=== PATIENT | female | born 1980 | race African-American/Black ===

== ENCOUNTER 2024-08-25 09:13 | Emergency (ER) | payer OTHER, SELFPAY ==
--- NOTE | ~2024-08-25 | XR_ITS ---
EXAMINATION: XR chest 2V DATE: 08/25/2024 09:36 INDICATION: Chest pain. TECHNIQUE: Frontal and lateral views of the chest were obtained. COMPARISON: None. FINDINGS: There is no pneumonia, pleural effusion, or pneumothorax. The heart size is normal. IMPRESSION: 1. No acute cardiopulmonary disease. Reviewed, dictated and finalized at location L.
[2024-08-25 09:12] VITALS: O2SAT 100
--- NOTE | 2024-08-25 09:13 | ECG_ITS ---
Test Date: 2024-08-25 09:46:08 Measurements Intervals [place] Rate: 93 P: 50 NE: 139 QRS: 5 QRSD: 86 T: 23 QT: 333 QTc: 416 Interpretive Statements SINUS RHYTHM LOW QRS VOLTAGE IN PRECORDIAL LEADS Electronically Signed On 08-26-2024 11:37:36 CDT by Prasanth Vernon D.O
--- NOTE | 2024-08-25 09:18 | ED.ASTHMA ---
HPI - Asthma General Chief Complaint: Asthma Stated Complaint: asthma Time Seen by Provider: 08/25/24 09:13 Source: patient Mode of arrival: EMS Limitations: no limitations History of Present Illness HPI Narrative: This is a 44-year-old female that presents to the emergency department for shortness of breath. Ongoing since yesterday. Reports history of asthma. She has been using her nebulizer treatments with little relief. Denies fever, cough. Related Data Allergies Allergy/AdvReac Type Severity Reaction Status Date / Time No Known Allergies Allergy Verified 08/25/24 09:20 Review of Systems Review of Systems: CONSTITUTIONAL: Denies fever, CARDIOVASCULAR: Reports chest tightness RESPIRATORY: Reports dyspnea. All systems reviewed & are unremarkable except as noted in HPI and below PMFSH Past Medical History Medical History (Updated 08/25/24 @ 11:43 by Fallon Humphrey PA-C) History of asthma Social History Social History (Updated 08/25/24 @ 11:42 by Fallon Humphrey PA-C) Substance use: never Exam Narrative: GENERAL: Well-appearing, well-nourished, and in no acute distress. HEAD: Normocephalic, atraumatic. EYES: EOMI. ENT: Nares clear, no rhinorrhea or epistaxis. Mucous membranes moist. Oropharynx without tonsillar hypertrophy exudate or other lesions. NECK: Supple. No adenopathy or masses. CHEST: No respiratory distress. Lung sounds diminished with diffuse expiratory wheezing. No rales or rhonchi HEART: Regular rate and rhythm. No murmur heard. Normal peripheral pulses. EXTREMITIES: Normal range of motion. No edema. SKIN: Warm, dry, no rash. NEURO: No focal deficits. Alert and oriented x3. PSYCH: Normal mood and affect Course Course Emergency Course: Patient was updated on her workup and recommendation for admission for further evaluation/management. She does not wish to stay in the hospital at this time. She does report feeling much better. She will follow-up with her PCP Vital Signs Vital signs: Vital Signs Pulse Oximetry 100 08/25/24 09:12 Oxygen Delivery Room Air 08/25/24 09:12 Temperature 97.8 F 08/25/24 11:41 Pulse Rate 113 H 08/25/24 11:41 Respiratory Rate 20 08/25/24 11:41 Blood Pressure 143/94 H 08/25/24 11:41 Pulse Oximetry 100 08/25/24 11:41 Oxygen Delivery Room Air 08/25/24 09:12 MDM - Asthma MDM Narrative Medical decision making narrative: Patient presents to the emergency department for asthma exacerbation. Patient's lung sounds diminished with diffuse wheezing upon arrival. Given nebulizer treatment, magnesium, Solu-Medrol. Cbc without leukocytosis. Metabolic panel without concerning findings. Influenza, RSV and COVID screens are negative. EKG without acute ST changes, baseline troponin is negative. Chest x-ray without acute cardiopulmonary abnormality. Patient was updated on her workup and recommendation for admission for further evaluation/management due to the severity of her symptoms upon arrival. She does not wish to stay in the hospital at this time. She does report feeling much better. She will follow-up with her PCP. She was instructed to return at any time for further management Differential Diagnosis Differential diagnosis: Likely Acute exacerbation, Acute asthmatic bronchitis, Pneumonia and other (COVID, influenza, RSV) Lab Data Attestation: I reviewed the patient's lab results. 08/25/24 09:27 08/25/24 09:27 Labs: Lab Results 08/25/24 Range/Units 09:27 WBC 7.9 (4.5-10.0) K/mm3 RBC 4.68 (4.2-5.4) M/mm3 Hgb 13.1 (12.0-15.0) g/dL Hct 41.4 (37.0-47.0) % MCV 88.5 (80-100) fl MCH 28.0 (26-34) pg MCHC 31.6 L (32-36) g/dl RDW 13.0 (11.5-14.5) % Plt Count 229 (150-375) k/mm3 MPV 10.7 H (7.4-10.4) fl Immature Gran % (Auto) 0.5 (0-0.5) % Neut % (Auto) 63.9 (45.5-73.1) % Lymph % (Auto) 26.0 (18.3-44.2) % [place] % (Auto) 4.4 (2.6-8.5) % Eos % (Auto) 4.6 H (0-4.4) % Baso % (Auto) 0.6 (0.2-1.2) % Lymph # (Auto) 2.05 (0.9-3.2) K/mm3 [place] # (Auto) 0.4 (0.1-0.6) K/mm3 Eos # (Auto) 0.4 H (0-0.3) K/mm3 Baso # (Auto) 0.1 (0.0-0.1) K/mm3 Abs Immat Gran (auto) 0.04 H (0.00-0.031) K/mm3 Absolute Neuts (auto) 5.0 (1.3-6.7) K/mm3 Absolute Nucleated RBC 0.000 (0.0-0.012) K/mm3 Nucleated RBC % 0.0 (0.0-0.2) % PT 13.1 (11.1-14.7) Seconds INR 0.9 APTT 28.5 (22.3-36.8) Seconds Sodium 134 L (137-145) mmol/L Potassium 4.3 (3.4-5.0) mmol/L Chloride 101 (98-107) mmol/L Carbon Dioxide 22 (22-30) mmol/L Anion Gap 11 (4-12) mmol/L BUN 15 (7-17) mg/dL Creatinine 0.82 (0.7-1.0) mg/dL Estim Creat Clear Calc Not Reportable Estimated GFR > 60 (59 - ) Glucose 88 (65-110) mg/dL Calcium 9.0 (8.4-10.2) mg/dL Total Bilirubin 0.9 (0.2-1.3) mg/dL AST 20 (14-36) U/L ALT 21 (6-35) U/L Alkaline Phosphatase 72 (38-126) U/L Troponin I < 0.012 (0.000-0.034) ng/mL Total Protein 7.0 (6.3-8.2) g/dL Albumin 3.9 (3.5-5.1) g/dL Lipase 97 (23-300) U/L Influenza A (RT-PCR) Negative (Negative) Influenza B (RT-PCR) Negative (Negative) RSV (RT-PCR) Negative (Negative) SARS-CoV-2 RNA (RT-PCR) Negative (Negative) Imaging Data Radiologist's impression: ITS Impressions Chest X-Ray 08/25/24 09:38 IMPRESSION: 1. No acute cardiopulmonary disease. ECG Data EKG #1: ECG completion date: 08/25/24 EKG Interpretation: normal rate, sinus rhythm, no ST changes and normal QT Critical Care Time Critical Care Time Critical Care Time: No Discharge Plan Discharge Clinical Impression: Asthma with acute exacerbation Qualifiers: Asthma severity: unspecified severity Asthma persistence: persistent Qualified Code(s): J45.901 - Unspecified asthma with (acute) exacerbation Patient Disposition: Home, Self-Care Condition: Improved Instructions: Asthma (ED) Additional Instructions: Return to the emergency department for worsening symptoms, or any other concerns Remain well-hydrated, get plenty of rest. Take Tylenol or Motrin [id number]-[id number] for pain as needed. Albuterol nebulizer treatment every 4-6 hours. Continue Prednisone daily. You may start this tomorrow Follow up with your primary care doctor Patient Language: Citizen Of [place] Prescriptions: New prednisone 20 mg tablet 40 mg PO DAILY 4 Days Qty: 8 0RF
[2024-08-25] MEDS: ALBUTEROL SULFATE NEB 2.5 MG/3 ML INH 15 MG INHALATION (09:37)
[2024-08-25] MEDS: IPRATROPIUM BR 0.02% INH SOLN 0.5 MG/2.5 ML VIAL 1.5 MG INHALATION (09:37)
[2024-08-25 09:40] VITALS: PULSE 93; RESP 20
[2024-08-25] MEDS: MAGNESIUM SULF 2 GM/WATER 50ML 2 GM/50 ML BAG IVPB (09:40)
[2024-08-25] MEDS: methylPREDNISolone SOD SUCC 125 MG VIAL IV PUSH (09:40)
[2024-08-25 09:41] LABS: Basophils Absolute Auto 0.1 K/mm3 (0.0-0.1); Basophils Percent Auto 0.6 % (0.2-1.2); Eosinophils Absolute Auto 0.4 K/mm3 (0-0.3); Eosinophils Percent Auto 4.6 % (0-4.4); Hematocrit 41.4 % (37.0-47.0); Hemoglobin 13.1 g/dL (12.0-15.0); Immature Granulocyte Absolute 0.04 K/mm3 (0.00-0.031); Immature Granulocyte Percent A 0.5 % (0-0.5); Lymphocytes Absolute Auto 2.05 K/mm3 (0.9-3.2); Mean Corpuscular HGB Conc 31.6 g/dl (32-36); Mean Corpuscular Volume 88.5 fl (80-100); Mean Platelet Volume 10.7 fl (7.4-10.4); Monocytes Absolute Auto 0.4 K/mm3 (0.1-0.6); Monocytes Percent Auto 4.4 % (2.6-8.5); Neutrophils Percent Auto 63.9 % (45.5-73.1); Platelet Count Result 229 k/mm3 (150-375); Red Blood Count 4.68 M/mm3 (4.2-5.4); White Blood Count 7.9 K/mm3 (4.5-10.0)
[2024-08-25 09:55] LABS: INR 0.9; Prothrombin Time 13.1 Seconds (11.1-14.7)
[2024-08-25 09:56] LABS: Partial Thromboplastin Time 28.5 Seconds (22.3-36.8)
[2024-08-25 10:09] LABS: Troponin I < 0.012 ng/mL (0.000-0.034)
[2024-08-25 10:17] LABS: Alanine Aminotransferase 21 U/L (6-35); Albumin Level 3.9 g/dL (3.5-5.1); Alkaline Phosphatase 72 U/L (38-126); Anion Gap 11 mmol/L (4-12); Aspartate Amino Transferase 20 U/L (14-36); Bilirubin,Total 0.9 mg/dL (0.2-1.3); Blood Urea Nitrogen 15 mg/dL (7-17); Carbon Dioxide 22 mmol/L (22-30); Chloride 101 mmol/L (98-107); Estimated Glomerular Filt Rate > 60; Glucose 88 mg/dL (65-110); Lipase 97 U/L (23-300); Potassium 4.3 mmol/L (3.4-5.0); Sodium 134 mmol/L (137-145)
[2024-08-25 10:18] LABS: Influenza A QL RT-PCR Negative (Negative); Influenza B QL RT-PCR Negative (Negative); RSV RNA, RT-PCR Negative (Negative); SARS-CoV-2 RNA PCR Negative (Negative)
--- OUTSIDE RECORDS SUMMARY | 2024-08-25 11:32 | XMS_ITS | Clinical Summary ---
Author Organization [facility] Address [address] [place] [address] Phone Care Team Providers Care Manufacturing Engineering Technician Name Role Phone Unavailable Primary Care Provider Unavailabl e Allergies No known active allergies Medications montelukast (Singulair) 10 mg tablet Take 1 Tablet (10 mg) by mouth daily at bedtime. 30 Tablet 1 3 Active albuterol sulfate HFA 90 mcg/actuation aerosol inhaler Take 4 Puffs by inhalation every 4 hours as needed for Shortness of Breath. 8.5 Gram 3 Active albuterol (PROVENTIL,VENTOL IN) 2.5 mg /3 mL (0.083 %) Solution for Nebulization Take 3 mL (2.5 mg) by inhalation every 6 hours as needed for Shortness of Breath. 90 mL 11 12/19/2023 6:57 PM CDT 4 Active budesonide-formot Amber (Symbicort) 160-4.5 mcg/actuation HFA Aerosol Inhaler Take 2 Puffs by inhalation 2 times daily. 10.2 Gram 11 12/22/2023 4:18 PM CDT 4 Active glyBURIDE (DIABETA) 5 mg tablet TAKE 1 TABLET BY MOUTH TWICE DAILY DIRECTED Active fluticasone propionate (FLONASE) 50 mcg/spray [place], Suspension nasal inhaler SHAKE LIQUID AND USE 1 SPRAY IN EACH NOSTRIL EVERY DAY Active losartan-hydroCHL OROthiazide (HYZAAR) 100-12.5 mg tablet Take 1 Tablet by mouth daily in the morning. 2 Active Active Problems Problem Noted Date Diagnosed Date Moderate persistent asthma with exacerbation Type 2 diabetes mellitus wit h hypoglycemia without coma, without long-term current use of insulin 02/27/2022 Encounters Date Type Department Care Team Description 07/25/2024 External Device Data [facility]CTION Provider, Abstract 07/18/2024 External Device Data [facility] Provider, Abstract 07/06/2024 External Device Data [facility] Provider, Abstract 06/28/2024 External Device Data [facility] Provider, Abstract 06/20/2024 External Device Data [facility] Provider, Abstract 05/30/2024 External Device Data [facility] Provider, Abstract from Last 3 Months Immunizations Immunization Administration Dates Next Due Influenza Seasonal Unspecifi ed Formulation IM 04/13/2023,03/26/2022,03/12/2021 Social History Tobacco Use Types Packs/Day Years Used Date Smoking Tobacco: Never Smokeless Tobacco: Never Tobacco Cessation:Counseling Given: Not Answered Alcohol Use Standard Drinks/Week Comments Not Currently 0 (1 standard drink = 0.6 oz pur e alcohol) Feeling Safe Answer Date Recorded Are you in a relationship wi th someone who hurts you emotionally and/or physically? 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 Gender Identity Not on file Sexual Orientation Not on file Last Filed Vital Signs Vital Sign Reading Time Taken Comments Blood Pressure 132/101 12/19/2023 5:09 PM CDT Pulse 97 12/19/2023 5:32 PM CDT Temperature 36.8 C (98.3 F) 12/19/2023 5:09 PM CDT Respiratory Rate 18 12/19/2023 6:52 PM CDT Oxygen Saturation 93% 12/19/2023 5:32 PM CDT Inhaled Oxygen Concentration - - Weight 152 kg (335 lb) 12/19/2023 5:09 PM CDT Height 168.1 cm (5' 6.2 ) 12/19/2023 5:09 PM CDT Body Mass Index 53.74 12/19/2023 5:09 PM CDT Plan of Treatment Health Maintenance Due Date Last Done Comments PNEUMOCOCCAL VACCINE 0-49 YEARS (1 of 2 - PCV) 1985 DIABETES ANNUAL FOOT EXAM 1997 DIABETES ANNUAL RETINAL EXAM 1997 DIABETES MICROALBUMIN ANNUAL SCREEN 1997 LDL CHOLESTEROL ANNUAL 1997 HEPATITIS B VACCINES (1 of 3 - 19+ 3-dose series) 1998 03/29/2018 CERVICAL CANCER SCREENING 2009 BREAST CANCER SCREENING 2019 INFLUENZA VACCINE (#1) 2024 , 03/26/2022, 03/12/2021, Additional history exists COLORECTAL SCREENING 2024 Colorectal Cancer Screening 2024 FIT-DNA Q 3 years 2024 FIT/FOBT Q 1 year 2024 Flex Sig/CT Colonography Q 5 years 2024 DIABETES HBA1C Q 6 MONTHS 10/09/20242023, 02/26/2022, 12/12/2021, Additional history exists DTAP/TDAP/TD VACCINES (2 - Td or Tdap) 03/29/2028 03/29/2018 HPV VACCINES Aged Out No longer eligi ble based on patient's age to complete this topic Procedures Procedure Name Priority Date/Time Associated Diagnosis Comments HEMOGLOBIN A1C Stat 02/26/2022 8:54 PM CDT from Last 3 Months or Most Recently Relevant to Health Maintenance Results * HEMOGLOBIN A1C (02/26/2022 8:54 PM CDT) HEMOGLOBIN A1C 4.7 <5.7 % 02/26/2022 10:06 PM CDT [facility] [employer] [facility] EST. AVG GLUCOSE, A1C 88 mg/dL 02/26/2022 10:06 PM CDT [facility] [employer] [facility] Blood Venipuncture / Unknown 02/26/2022 8:54 PM CDT 02/26/2022 9:49 PM CDT Narrative [facility] [employer] [facility] - 02/26/2022 10:06 PM CDT HGB A1C INTERPRETATION NORMAL: <5.7% PRE-DIABETES: 5.7 - 6.4% DIABETES: 6.5% OR GREATER us Vladimir Rangel MD CHEMISTRY ORDERABLES Final Re sult [facility]# [id number] [address] [place] [id number] from Last 3 Months or Most Recently Relevant to Health Maintenance Insurance [employer] [place] RX [facility] [employer] Advance Directives For more information, please contact: [phone] * Default Full Code - Needs Discussion (Latest Code Status on File) Date Activated Date Inactivated Comments 02/27/2022 7:40 AM 02/27/2022 9:52 AM
--- OUTSIDE RECORDS SUMMARY | 2024-08-25 11:32 | XMS_ITS | Referral Summary ---
Author Organization [facility] [employer] Address [address] [place] [address] Care Team Providers Care Finance Officer Name Role Phone Josi Patel Dereje THOMPSONN-SENIOR DESIGNER/ART DIRECTOR Primary Care Provi jesus Source Comments [facility] [employer]non-owned Affiliates and Associated Physician Practices is amultiple site organization consisting of ambulatory clinics and hospital sitesin [place], [place], [place] and [place]. This disclosure is being madepursuant to the Care Everywhere program and may not contain all information available regarding this patient. Last updated [employer] Allergies No known active allergies Medications * Be aware that medications may not be up to date on this document. Alwaysverify current medications with the patient. Medication Sig Dispensed Refills Start Date End Date Status ipratropium (ATROVENT) 0.06 % nasal spray Floyd 2 sprays into each nostril 3 times daily 1 bottles 03/26/2019 Active albuterol HFA (ProAir HFA) 108 (90 Base) MCG/ACT inhaler Inhale 2 (two) puffs by mouth every 4 hours as needed 8.5 g 04/04/2023 Active albuterol (Accuneb) 1.25 MG/3ML nebulizer solution Inhale 3 mL by mouth 4 times daily as needed for Shortness of Breath or Wheezing 75 mL 01/03/2024 Active Nirmatrelvir&Riton avir 300/100 20 x 150 MG & 10 x 100MG Oral Tablet Therapy Pack (Paxlovid) Take two 150mg tablets (300mg) of nirmatrelvir and one tablet (100mg) of ritonavir together as a single dose by mouth twice daily for 5 days. Do not crush, chew, or cut in half. 30 tablet 01/03/2024 Active albuterol (Accuneb) 1.25 MG/3ML nebulizer solution Inhale 3 mL by mouth 4 times daily as needed for Shortness of Breath or Wheezing 75 mL 01/03/2024 Active Active Problems No known active problems Social History Tobacco Use Types Packs/Day Years Used Date Smoking Tobacco: Never Assessed Sex and Gender Information Value Date Recorded Sex Assigned at Not on file Gender Identity Not on file Sexual Orientation Not on file Last Filed Vital Signs Vital Sign Reading Time Taken Comments Blood Pressure 162/99 04/10/2024 12:16 PM CDT Pulse 70 04/10/2024 12:16 PM CDT Temperature 36.8 C (98.2 F) 04/10/2024 12:16 PM CDT Respiratory Rate 18 04/10/2024 12:16 PM CDT Oxygen Saturation 95% 04/10/2024 12:16 PM CDT Inhaled Oxygen Concentration - - Weight 167.8 kg (370 lb) 04/10/2024 10:15 AM CDT Height 167.6 cm (5' 6 ) 04/10/2024 10:15 AM CDT Body Mass Index 59.72 04/10/2024 10:15 AM CDT Plan of Treatment Not on file Care Teams Finance Officer Relationship Specialty Start Date End Date Josi Patel, PATIENT PORTAL CONCIERGE-SENIOR DESIGNER/ART DIRECTOR [address] [place] [id number] PCP - General Nurse Practitioner Family 04/10/24
--- OUTSIDE RECORDS SUMMARY | 2024-08-25 11:32 | XMS_ITS | Patient Health Summary ---
Author Organization [facility] Address [address] [place] [address] Care Team Providers Care Human Resources Designate Name Role Phone Josi Patel Dereje THOMPSONN-CONSTRUCTION ANALYST Primary Care Provi jesus Note from [facility],non-owned Affiliates and Associated Physician Practices is amultiple site organization consisting of ambulatory clinics and hospital sitesin [place], [place], [place] and [place]. This disclosure is being madepursuant to the Care Everywhere program and may not contain all information available regarding this patient. Last updated 18.[facility] Allergies No known active allergies Medications * Be aware that medications may not be up to date on this document. Alwaysverify current medications with the patient. * ipratropium (ATROVENT) 0.06 % nasal spray(Started 03/26/2019) [place] 2 sprays into each nostril 3 times daily * albuterol HFA (ProAir HFA) 108 (90 Base) MCG/ACT inhaler(Started 04/04/2023) Inh[place] 2 (two) puffs by mouth every 4 hours as needed * albuterol (Accuneb) 1.25 MG/3ML nebulizer solution(Started 01/03/2024) Inhale 3 mL by mouth 4 times daily as needed for Shortness of Breath or Wheezing * Nirmatrelvir&Ritonavir 300/100 20 x 150 MG & 10 x 100MG Oral Tablet Therapy Pack (Paxlovid)(Started 01/03/2024) Take two 150mg tablets (300mg) of nirmatrelvir and one tablet (100mg) of ritonavir together as a single dose by mouth twice daily for 5 days. Do not crush, chew, or cut in half. * albuterol (Accuneb) 1.25 MG/3ML nebulizer solution(Started 01/03/2024) Inhale 3 mL by mouth 4 times daily as needed for Shortness of Breath or Wheezing Active Problems No known active problems Social [...] Mass Index 59.72 04/10/2024 10:15 AM CDT Procedures * GLUCOSE - POINT OF CARE(Performed 04/10/2024) * LACTIC ACID BLOOD REFLEX TO REPEAT(Performed 04/10/2024) * HEMOGLOBIN A1C(Performed 04/10/2024) * HYDROXYBUTYRATE BETA(Performed 04/10/2024) * HCG BETA BLOOD QUANTITATIVE(Performed 04/10/2024) * URINALYSIS REFLEX MICROSCOPIC REFLEX CULTURE(Performed 04/10/2024) * MAGNESIUM BLOOD(Performed 04/10/2024) * COMPREHENSIVE METABOLIC PANEL(Performed 04/10/2024) * CBC W AUTO DIFFERENTIAL(Performed 04/10/2024) * GLUCOSE - POINT OF CARE(Performed 04/10/2024) * CARDIAC EKG ORDER(Performed 03/07/2024) * TROPONIN-I HIGH SENSITIVE REFLEX 1HOUR(Performed 03/04/2024) * HCG BETA BLOOD QUANTITATIVE(Performed 03/04/2024) * MAGNESIUM BLOOD(Performed 03/04/2024) * TROPONIN-I HIGH SENSITIVE BASELINE + 1HR(Performed 03/04/2024) * COMPREHENSIVE METABOLIC PANEL(Performed 03/04/2024) * CBC W AUTO DIFFERENTIAL(Performed 03/04/2024) * SARS-COV-2 (COVID-19) RAPID(Performed 03/04/2024) * XR CHEST 1VW PORTABLE(Performed 03/04/2024) Performed for SOB (shortness of breath) * EKG 12-LEAD(Performed 03/04/2024) Performed for SOB (shortness of breath) * CARDIAC EKG ORDER(Performed 01/04/2024) * XR CHEST 1VW PORTABLE(Performed 01/03/2024) Performed for Chest pain, unspecified type * B-TYPE NATRIURETIC PEPTIDE(Performed 01/03/2024) * MAGNESIUM BLOOD(Performed 01/03/2024) * TROPONIN-I HIGH SENSITIVE BASELINE + 1HR(Performed 01/03/2024) * COMPREHENSIVE METABOLIC PANEL(Performed 01/03/2024) * CBC W AUTO DIFFERENTIAL(Performed 01/03/2024) * SARS-COV-2 (COVID-19) RAPID(Performed 01/03/2024) * EKG 12-LEAD(Performed 01/03/2024) Performed for Chest pain, unspecified type * CARDIAC EKG ORDER(Performed 04/05/2023) * CBC W AUTO DIFFERENTIAL(Performed 04/04/2023) * XR CHEST 2VW(Performed 04/04/2023) Performed for Shortness of breath * SARS-COV-2 (COVID-19) RAPID(Performed 04/04/2023) * TROPONIN-I HIGH SENSITIVE BASELINE + 1HR(Performed 04/04/2023) * COMPREHENSIVE METABOLIC PANEL(Performed 04/04/2023) * EKG 12-LEAD(Performed 04/04/2023) Performed for Shortness of breath * COMPREHENSIVE METABOLIC PANEL(Performed 12/26/2022) * CBC W AUTO DIFFERENTIAL(Performed 12/26/2022) * XR CHEST 2VW(Performed 12/26/2022) Performed for Shortness of breath * PHOSPHORUS BLOOD(Performed 08/13/2016) * MAGNESIUM BLOOD(Performed 08/13/2016) * BASIC METABOLIC PANEL (CALCIUM TOTAL)(Performed 08/13/2016) * CBC W AUTO DIFFERENTIAL(Performed 08/13/2016) * CBC W AUTO DIFFERENTIAL(Performed 08/13/2016) * BASIC METABOLIC PANEL (CALCIUM TOTAL)(Performed 08/12/2016) * PHOSPHORUS BLOOD(Performed 08/12/2016) * MAGNESIUM BLOOD(Performed 08/12/2016) * CBC W AUTO DIFFERENTIAL(Performed 08/12/2016) * CBC W AUTO DIFFERENTIAL(Performed 08/12/2016) * HCG URINE QUALITATIVE - POCT (IP) [facility](Performed 08/11/2016) * BLOOD GASES ARTERIAL(Performed 08/11/2016) * XR CHEST 1VW PORTABLE(Performed 08/11/2016) * CBC W AUTO DIFFERENTIAL(Performed 08/11/2016) * COMPREHENSIVE METABOLIC PANEL(Performed 08/11/2016) * CBC W AUTO DIFFERENTIAL(Performed 08/11/2016) * XR CHEST 2VW(Performed 08/06/2016) * EKG 12-LEAD(Performed 08/06/2016) * BASIC METABOLIC PANEL (CALCIUM TOTAL)(Performed 04/07/2015) * CBC W AUTO DIFFERENTIAL(Performed 04/07/2015) * CBC W AUTO DIFFERENTIAL(Performed 04/07/2015) * BASIC METABOLIC PANEL (CALCIUM TOTAL)(Performed 04/06/2015) * CBC W AUTO DIFFERENTIAL(Performed 04/06/2015) * CBC W AUTO DIFFERENTIAL(Performed 04/06/2015) * MAGNESIUM BLOOD(Performed 04/05/2015) * BASIC METABOLIC PANEL (CALCIUM TOTAL)(Performed 04/05/2015) * BLOOD GASES ADIS(Performed 04/05/2015) * LACTIC ACID WHOLE BLOOD(Performed 04/05/2015) * CBC W AUTO DIFFERENTIAL(Performed 04/05/2015) * CBC W AUTO DIFFERENTIAL(Performed 04/05/2015) * XR CHEST 1VW PORTABLE(Performed 04/05/2015) * GROSS + MICRO EXAM(Performed 07/19/2000) Results * (ABNORMAL) GLUCOSE - POINT OF CARE (04/10/2024 1:12 PM CDT) Only the most recent of2 resultswithin the time period is included. Glucose WB/POC 278(H) 70 - 99 mg/dL 04/10/2024 1:21 PM CDT [facility] Specimen Type Cap Fingerstick 2023 1:21 PM CDT [facility] Blood BLOOD SPECIMEN / Unknown 04/10/2024 1:12 PM CDT 04/10/2024 1:21 PM CDT Provider Unknown LAB - POINT OF CARE ORDERABLES Performing Organization Address [facility]/ZIP Co de Phone Number [facility] [address] [place] [address] * LACTIC ACID BLOOD REFLEX TO REPEAT (04/10/2024 12:02 PM CDT) Lactic Acid 1.0 <=2.0 mmol/L 04/10/2024 12:18 PM CDT [facility] Blood BLOOD SPECIMEN / Unknown Venipuncture / Unknown 04/10/2024 12:02 PM CDT 04/10/2024 12:02 PM CDT Kyle SHEIKH LAB - CHEMISTRY OR DERABLES Performing Organization Address [facility] Co de Phone Number [facility] [address] [place] [address] * (ABNORMAL) URINALYSIS REFLEX MICROSCOPIC REFLEX CULTURE (04/10/2024 12:00 PM CDT) Color UA Yellow Straw, Yellow 04/10/2024 12:05 PM CDT [facility] Clarity UA Slt Cloudy(A) Clear 04/10/2024 12:05 PM CDT [facility] Glucose UA 3+(A) Negative 04/10/2024 12:05 PM CDT [facility] Bilirubin UA Negative Negative 04/10/2024 12:05 PM CDT [facility] Ketone UA Negative Negative 04/10/2024 12:05 PM CDT [facility] Specific [place] UA 1.023 1.005 - 1.030 04/10/2024 12:05 PM CDT [facility] Blood UA Negative Negative 04/10/2024 12:05 PM CDT [facility] pH UA 5.0 5.0 - 8.0 pH 04/10/2024 12:05 PM CDT [facility] Protein UA Negative Negative 04/10/2024 12:05 PM CDT [facility] Urobilinogen UA Negative Negative mg/dL 04/10/2024 12:05 PM CDT [facility] Nitrite UA Negative Negative 04/10/2024 12:05 PM CDT [facility] Leukocyte UA Negative Negative 04/10/2024 12:05 PM CDT [facility] Urine Microscopy Urine microscopy not indicated 04/10/2024 12:05 PM CDT [facility] Reflex Status Culture not indicated 04/10/2024 12:05 PM CDT [facility] Urine URINE SPECIMEN OBTAINED BY CLEAN CATCH PROCEDURE / Unknown 04/10/2024 12:00 PM CDT 04/10/2024 12:00 PM CDT Narrative [facility] - 04/10/2024 12:05 PM CDT Kyle SHEIKH LAB - URINALYSIS O RDERABLES Performing Organization Address [facility]/ZIP Co de Phone Number [facility] [address] [place], [place] [id number] * HYDROXYBUTYRATE BETA (04/10/2024 12:00 PM CDT) Beta-Hydroxybu tyrate <0.50 <0.50 mmol/L 04/10/2024 12:17 PM CDT [facility] Blood BLOOD SPECIMEN / Unknown Venipuncture / Unknown 04/10/2024 12:00 PM CDT 04/10/2024 12:00 PM CDT Narrative [facility] - 04/10/2024 12:17 PM CDT Results >1.5 mmol/L may be indicative of diabetic ketoacidosis. Use in conjunction with Serum Glucose levels. Kyle SHEIKH LAB - CHEMISTRY OR DERABLES Performing Organization Address [facility] Co de Phone Number [facility] [address] [place] [address] * (ABNORMAL) HEMOGLOBIN A1C (04/10/2024 12:00 PM CDT) Hemoglobin A1c 9.1(H) <5.7 % 04/10/2024 12:17 PM CDT [facility] Estimated Average Glucose 214 mg/dL 04/10/2024 12:17 PM CDT [facility] Blood BLOOD SPECIMEN / Unknown Venipuncture / Unknown 04/10/2024 12:00 PM CDT 04/10/2024 12:00 PM CDT Narrative [facility] - 04/10/2024 12:17 PM CDT HbA1c Interpretation: Normal: < 5.7% Pre-diabetes: 5.7-6.4% Diabetes: Equal to or greater than 6.5% Test results diagnostic of diabetes should be repeated for confirmation. Treatment target values recommended by ADA and other clinical organizations should be used to evaluate metabolic control in patients. This test should not replace glucose testing for patients with Type 1 diabetes, pediatric patients, or women. Falsely low HbA1c results may be observed in patients with clinical conditions that shorten erythrocyte life span or decrease mean erythrocyte age such as the presence of unstable hemoglobin variants, elevated hemoglobin F level or other causes of hemolytic anemia. HbA1c may not accurately reflect glycemic control when clinical conditions that affect erythrocyte survival are present. Severe Iron deficiency anemia may yield falsely high results. Hemoglobin A1c assay should not be used to diagnose or monitor diabetes in patients with malignancy, recent blood transfusion, chronic kidney or liver disease. This method may yield falsely low results when hemoglobin (HbF) exceeds 5% in the specimen. The Champagne Alinity assay for the measurement of HbA1c is a National Glycohemoglobin Standardization Program (NGSP) certified method. Kyle SHEIKH LAB - CHEMISTRY OR DERABLES [facility] [address] [place] [address] * (ABNORMAL) CBC W AUTO DIFFERENTIAL (04/10/2024 12:00 PM CDT) Only the most recent of17 resultswithin the time period is included. WBC 13.6(H) 4.0 - 10.7 x10E9/L 04/10/2024 12:03 PM CDT [facility] RBC Count 5.11 3.90 - 5.20 x10E12/L 04/10/2024 12:03 PM CDT [facility] Hemoglobin 13.7 11.9 - 15.8 g/dL 04/10/2024 12:03 PM CDT [facility] Hematocrit 43.1 34.8 - 46.1 % 04/10/2024 12:03 PM CDT [facility] MCV 84.3 80.0 - 98.0 fL 04/10/2024 12:03 PM CDT [facility] MCH 26.8 26.7 - 33.6 pg 04/10/2024 12:03 PM CDT [facility] MCHC 31.8 31.7 - 36.3 g/dL 04/10/2024 12:03 PM [facility] RDW-CV 12.3 11.3 - 14.8 % 04/10/2024 12:03 PM [facility] Platelet Count 214 150 - 420 x10E9/L 04/10/2024 12:03 PM [facility] MPV 10.6 7.8 - 11.4 fL 04/10/2024 12:03 PM [facility] Neutrophil % 66.1 41.0 - 74.0 % 04/10/2024 12:03 PM [facility] Lymphocyte % 26.6 17.0 - 47.0 % 04/10/2024 12:03 PM [facility] Monocyte % 4.6 3.0 - 11.0 % 04/10/2024 12:03 PM [facility] Eosinophil % 1.8 0.0 - 7.0 % 04/10/2024 12:03 PM [facility] Basophil % 0.4 0.0 - 1.6 % 04/10/2024 12:03 PM [facility] Immature Granulocytes % 0.5 0.0 - 1.0 % 04/10/2024 12:03 PM [facility] Neutrophil Absolute 8.94(H) 1.60 - 7.50 x10E9/L 04/10/2024 12:03 PM [facility] Lymphocyte Absolute 3.61 1.00 - 4.40 x10E9/L 04/10/2024 12:03 PM [facility] Monocyte Absolute 0.62 0.15 - 1.00 x10E9/L 04/10/2024 12:03 PM [facility] Eosinophil Absolute 0.25 0.00 - 0.60 x10E9/L 04/10/2024 12:03 PM [facility] Basophil Absolute 0.06 0.00 - 0.13 x10E9/L 04/10/2024 12:03 PM [facility] Blood BLOOD SPECIMEN / Unknown Venipuncture / Unknown 04/10/2024 12:00 PM CDT 04/10/2024 12:00 PM CDT Kyle SHEIKH LAB - HEMATOLOGY O RDERABLES [facility] [address] [place], [place] [id number] * (ABNORMAL) COMPREHENSIVE METABOLIC PANEL (04/10/2024 12:00 PM CDT) Only the most recent of6 resultswithin the time period is included. Glucose 305(H) 70 - 99 mg/dL 04/10/2024 12:17 PM CDT [facility] Sodium 136 136 - 145 mmol/L 04/10/2024 12:17 PM CDT [facility] Potassium 4.6 3.5 - 5.1 mmol/L 04/10/2024 12:17 PM CDT [facility] Chloride 103 98 - 107 mmol/L 04/10/2024 12:17 PM CDT [facility] CO2 22 22 - 29 mmol/L 04/10/2024 12:17 PM CDT [facility] Calcium 9.4 8.4 - 10.4 mg/dL 04/10/2024 12:17 PM CDT [facility] Anion Gap 11 6 - 16 mmol/L 04/10/2024 12:17 PM CDT [facility] BUN 16 5.3 - 18.7 mg/dL 04/10/2024 12:17 PM CDT [facility] Creatinine 1.14(H) 0.57 - 1.11 mg/dL 04/10/2024 12:17 PM CDT [facility] Alkaline Phosphatase 83 40 - 150 U/L 04/10/2024 12:17 PM CDT [facility] ALT 28 0 - 55 U/L 04/10/2024 12:17 PM CDT [facility] AST 18 5 - 34 U/L 04/10/2024 12:17 PM CDT [facility] Protein Total 7.2 6.4 - 8.3 gm/dL 04/10/2024 12:17 PM CDT [facility] Albumin 3.4 3.4 - 5.0 gm/dL 04/10/2024 12:17 PM CDT [facility] Bilirubin Total 0.5 0.2 - 1.2 mg/dL 04/10/2024 12:17 PM CDT [facility] eGFR by CKD-EPI 61(L) >=90 mL/min/1.7 3 m2 04/10/2024 12:17 PM CDT [facility] Blood BLOOD SPECIMEN / Unknown Venipuncture / Unknown 04/10/2024 12:00 PM CDT 04/10/2024 12:00 PM CDT Kyle SHEIKH LAB - CHEMISTRY OR DERABLES Performing Organization Address [facility] Co de Phone Number [facility] [address] [place] [id number] * HCG BETA BLOOD QUANTITATIVE (04/10/2024 12:00 PM CDT) Only the most recent of2 resultswithin the time period is included. hCG Quantitative <2.42 mIU/mL 04/10/20 12:25 PM CDT [facility] Blood BLOOD SPECIMEN / Unknown Venipuncture / Unknown 04/10/2024 12:00 PM CDT 04/10/2024 12:00 PM CDT Narrative [facility] - 04/10/2024 12:25 PM CDT hCG Reference Range, mIU/mL: Non Females 0-6.0 Perimenopausal Females ages 41-55* 0-7.7 Postmenopausal Females age >55* 0-14 Females, Weeks after Last Menstrual Period 0.2-1 week 5-50 1 - 2 weeks 50-500 2 - 3 weeks 100-5000 3 - 4 weeks 500-10,000 4 - 5 weeks 1000-50,000 5 - 6 weeks 10,000-100,000 6 - 8 weeks 15,000-200,000 2 - 3 months 10,000-100,000 Trophoblastic Disease >100,000 *In higher than expected hCG in females > age 40, a serum FSH >20 IU/L makes unlikely. Kyle SHEIKH LAB - CHEMISTRY OR DERABLES Performing Organization Address City/[facility]/ZIP Co de Phone Number [facility] [address] [place] [id number] * MAGNESIUM BLOOD (04/10/2024 12:00 PM CDT) Only the most recent of6 resultswithin the time period is included. Magnesium 1.7 1.6 - 2.6 mg/dL 04/10/2024 12:17 PM CDT [facility] Blood BLOOD SPECIMEN / Unknown Venipuncture / Unknown 04/10/2024 12:00 PM CDT 04/10/2024 12:00 PM CDT Kyle SHEIKH LAB - CHEMISTRY OR DERABLES [facility] [address] [place] [id number] * CARDIAC EKG ORDER (03/07/2024 3:57 AM CDT) Only the most recent of3 resultswithin the time period is included. Narrative 03/07/2024 3:57 AM CDT Ordered by an unspecified provider. Scanned Document CARDIAC SERVICES ORD ERABLES * TROPONIN-I HIGH SENSITIVE REFLEX 1HOUR (03/04/2024 10:09 AM CDT) Pathologist [facility] Troponin I High Sensitive 5 <=14 ng/L 03/04/2024 10:32 AM CDT [facility] Delta Troponin I HS 03/04/2024 10:32 AM CDT [facility] Comment:Delta value intentio rojelio not calculated. Baseline to 1 hour specimen collection interval exceeded. Blood BLOOD SPECIMEN / Unknown Venipuncture / Unknown 03/04/2024 10:09 AM CDT 03/04/2024 10:11 AM CDT Sindy Pimentel DO LAB - CHEMISTRY ORDE RABALISSA [facility] [address] [place] [id number] * TROPONIN-I HIGH SENSITIVE BASELINE + 1HR (03/04/2024 7:46 AM CDT) Only the most recent of3 resultswithin the time period is included. [facility] Troponin I High Sensitive 5 <=14 ng/L 03/04/2024 8:13 AM CDT [facility] Blood BLOOD SPECIMEN / Unknown Venipuncture / Unknown 03/04/2024 7:46 AM CDT 03/04/2024 7:52 AM CDT Sindy Pimentel DO LAB - CHEMISTRY BETTY SAMSON Performing Organization Address City/State/[facility] Co de Phone Number [facility] [address] [place] [address] * SARS-COV-2 (COVID-19) RAPID (03/04/2024 7:38 AM CDT) Only the most recent of3 resultswithin the time period is included. [facility] COVID-19 PCR Not detected Not detected 03/04/20 24 8:50 AM CDT [facility] Microbiology SPECIMEN FROM NASOPHARYNGEAL STRUCTURE / Unknown Collection / Unknown 03/04/2024 7:38 AM CDT 03/04/2024 7:52 AM CDT Narrative [facility] - 03/04/2024 8:50 AM CDT The [employer] Jungle[employer] Xpert Xpress SARS-COV-2 has been authorized by the Food and Drug Administration (FDA) under an Emergency Use Authorization (EUA). This test has been validated in accordance with the FDA's guidance document Policy for Diagnostic Testing in Laboratories Certified to perform High Complexity Testing under CLIA prior to Emergency Use Authorization for Coronavirus Disease-2019 during the Public Health Emergency issued on August 12, 2019. FDA independent review of this validation is pending. This test is only authorized for the duration of the time the declaration that circumstances exist justifying the authorization of emergency use of in vitro diagnostic tests for detection of SARS-COV-2 virus and/or diagnosis of COVID-19 infection under 564(b) (1) of the Act. 21 U.S.C. 360bbb-3 (b) (1), unless the authorization is terminated or revoked sooner. Fact Sheets for this EUA assay are available upon request. Sindy Entwistle DO LAB - MICROBIOLOGY O RDERABLES [facility] [address] [place] [address] * XR CHEST 1VW PORTABLE (03/04/2024 7:31 AM CDT) Only the most recent of4 resultswithin the time period is included. Anatomical Region Laterality Modality Chest Radiographic Odalys ging 03/04/2024 7:40 AM CDT Impressions 03/04/2024 7:40 AM CDT IMPRESSION: No evidence of acute pulmonary disease. > Interpreting Provider: Julio Cesar Dominguez MD on 03/04/2024 7:40 AM Narrative 03/04/2024 7:40 AM CDT PROCEDURE: XR CHEST 1VW PORTABLE DATE/TIME OF EXAM: 03/04/2024 7:31 AM CLINICAL INFORMATION: None relevant/not provided if blank. Indication: R06.02: Shortness of breath Additional History: COMPARISON: 01/03/2024 FINDINGS: No confluent consolidation or definite effusion/pneumothorax is seen. Minimal bibasilar atelectasis. The cardiomediastinal silhouette is within normal limits for technique. Procedure Note Julio Cesar Dominguez MD - 03/04/2024 PROCEDURE: XR CHEST 1VW PORTABLE DATE/TIME OF EXAM: 03/04/2024 7:31 AM CLINICAL INFORMATION: None relevant/not provided if blank. Indication: R06.02: Shortness of breath Additional History: COMPARISON: 01/03/2024 FINDINGS: No confluent consolidation or definite effusion/pneumothorax is seen. Minimal bibasilar atelectasis. The cardiomediastinal silhouette iswithin normal limits for technique. IMPRESSION: No evidence of acute pulmonary disease. > Interpreting Provider: Julio Cesar Dominguez MD on 03/04/2024 7:40 AM Sindy Pimentel DO DIAGNOSTIC IMAGING O RDERABLES * EKG 12-LEAD (03/04/2024 7:03 AM CDT) Only the most recent of4 resultswithin the time period is included. Ventricular Rate 95 BPM [facility] Atrial Rate 95 BPM [facility] P-R Interval 124 ms [facility] QRS Duration ms 84 ms [facility] Q-T Interval ms 360 ms [facility] QTC Calculation (Bezet) 452 ms [facility] MUSE Calculated P [place] 69 degrees [facility] MUSE Calculated R [place] 75 degrees [facility] MUSE Calculated T [place] -20 degrees [facility] Interpretation EKG NORMAL SINUS RHYTHM NONSPECIFIC T WAVE ABNORMALITY ABNORMAL ECG WHEN COMPARED WITH ECG OF 03-JAN-2024 07:24, T WAVE INVERSION NOW EVIDENT IN INFERIOR LEADS NONSPECIFIC T WAVE ABNORMALITY NOW EVIDENT IN ANTEROLATERAL LEADS Confirmed by Diony Velasquez MD ([id number]) on 03/05/2024 7:38:30 AM [facility] 03/04/2024 7:03 AM CDT 03/05/2024 7:38 AM CDT Sindy Pimentel DO ECG ORDERABLES Performing Organization Address [facility] Co de Phone Number [facility] * B-TYPE NATRIURETIC PEPTIDE (01/03/2024 7:47 AM CDT) BNP 54 <=100 pg/mL 01/03/2024 9:06 AM CDT [facility] Blood BLOOD SPECIMEN / Unknown Venipuncture / Unknown 01/03/2024 7:47 AM CDT 01/03/2024 7:51 AM CDT Narrative [facility] - 01/03/2024 9:06 AM CDT A cutoff of 100 pg/mL has been demonstrated to provide the maximal combination of sensitivity, specificity, and negative predictive value for contributing to the diagnosis of congestive heart failure (CHF) only. A B-Type Natriuretic Peptide (BNP) value greater than or equal to 100 pg/mL is consistent with a diagnosis of CHF in the appropriate clinical setting. False positive results are more common in females greater than 75 years of age. Blood concentrations of natriuretic peptides may also be elevated in patients with myocardial infarction and in patients who are candidates for or are undergoing renal dialysis. Lemuel Bañuelos DO LAB - CHEMISTRY ORDERABLES Performing Organization Address City/[facility]/ZIP Co de Phone Number [facility] [address] [place] [address] * XR CHEST 2VW (04/04/2023 12:14 PM CDT) Only the most recent of3 resultswithin the time period is included. Anatomical Region Laterality Modality Chest Radiographic Odalys ging 04/04/2023 12:1 7 PM CDT Impressions 04/04/2023 12:18 PM CDT IMPRESSION: No active disease. > Interpreting Provider: Guilherme Woody MD on 04/04/2023 12:18 PM Narrative 04/04/2023 12:18 PM CDT Procedure: XR CHEST 2VW Exam Date: 04/04/2023 12:14 PM Location: [facility] Indication: R06.02: Shortness of breath Findings: The lungs are clear of infiltrate. There is no pleural effusion or pneumothorax. The heart size and pulmonary vascularity are normal. There has been no change since December 2022. Procedure Note Guilherme Woody MD - 04/04/2023 Procedure: XR CHEST 2VW Exam Date: 04/04/2023 12:14 PM Location: [facility] Indication: R06.02: Shortness of breath Findings: The lungs are clear of infiltrate. There is no pleuraleffusion or pneumothorax. The heart size and pulmonary vascularity are normal. There has been no change since December 2022. IMPRESSION: No active disease. > Interpreting Provider: Guilherme Woody MD on 04/04/2023 12:18 PM Karyn Unger PA-C DIAGNOSTIC IMAGING ORDERABLES * (ABNORMAL) BASIC METABOLIC PANEL (CALCIUM TOTAL) (08/13/2016 5:58 AM 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) Only the most recent of5 resultswithin the time period is included. BUN 14 7 - 26 mg/dL [facility] Creatinine 0.8 0.6 - 1.2 mg/dL [facility] Sodium 139 136 - 145 mmol/L [facility] Potassium 4.3 3.5 - 4.5 mmol/L [facility] Chloride 107 98 - 107 mmol/L [facility] CO2 21(L) 22 - 29 mmol/L [facility] Glucose 105 70 - 115 mg/dL [facility] Calcium 8.5 8.4 - 10.2 mg/dL [facility] Anion Gap 15 8 - 18 [facility] BUN/Creatinine Ratio 18 7 - 23 [facility] Osmolality Calculated 289 270 - 300 mOsm/kg [facility] eGFR >60 >60 mL/min/1.7 3 m2 [facility] Blood specimen (specimen) BLOOD SPECIMEN / Unknown 08/13/2016 5:58 AM 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 08/13/2016 6:02 AM 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 Odin Vickers MD LAB - CHEMISTRY O RDERABLES Performing Organization Address [facility]/ZIP Co de Phone Number [address] [phone] * PHOSPHORUS BLOOD (08/13/2016 5:58 AM 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) Only the most recent of2 resultswithin the time period is included. Phosphorus 3.3 2.3 - 4.7 mg/dL [facility] Comment:Confirmed by repeat analysis. Blood specimen (specimen) BLOOD SPECIMEN / Unknown 08/13/2016 5:58 AM 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 08/13/2016 6:02 AM 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 Odin Vickers MD LAB - CHEMISTRY O RDERABLES Performing Organization Address [facility] [place] [place] [address], [facility] [phone] * HCG URINE QUALITATIVE - POCT (IP) [facility] (08/11/2016 6:46 PM 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) Test Urine NEGATIVE [facility] Urine specimen (specimen) 08/11/2016 6:46 PM 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 Monty Jacob MD LAB - POINT OF CARE ORDERABLES Performing Organization Address [facility]/ZIP Co de Phone Number [facility] * (ABNORMAL) BLOOD GASES ART (08/11/2016 3:25 PM 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) pH Arterial 7.42 7.35 - 7.45 [facility] pCO2 Arterial 36 35 - 45 mmHg [facility] pO2 Arterial 92 82 - 106 mmHg [facility] HCO3 Arterial 23.0 22.0 - 26.0 mmol/L [facility] TCO2 Arterial 24.1(L) 25.0 - 29.0 mmol/L [facility] Base Excess Arterial -1.1 -2.0 - 2.0 mmol/L [facility] Hemoglobin Arterial 10.7(L) 12.0 - 15.5 g/dL [facility] Oxyhemoglobin Arterial 95.5 95.0 - 100.0 % [facility] Carboxyhemoglobin 1.1 0.0 - 3.0 % [facility] Methemoglobin 0.4 0.0 - 2.0 % [facility] FI O2 Arterial 33.0 % [facility] Blood specimen (specimen) BLOOD SPECIMEN / Unknown 08/11/2016 3:25 PM 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 08/11/2016 3:31 PM 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 Monty Jacob MD LAB - BLOOD GASES OR DERABLES [address] [phone] * LACTIC ACID WHOLE BLOOD (04/05/2015 6:24 PM CDT) Pathologist [facility] Lactic Acid Whole Blood 2.1 0.5 - 3.4 mmol/L [facility] Blood specimen (specimen) BLOOD SPECIMEN / Unknown 04/05/2015 6:24 PM CDT 04/05/2015 6:24 PM CDT Joyce Guzman MD LAB - CHEMISTRY BETTY SAMSON [address] [phone] * (ABNORMAL) BLOOD GASES ADIS (04/05/2015 6:24 PM CDT) Pathologist [facility] pH Mixed Venous 7.42(H) 7.30 - 7.40 [facility] pCO2 Mixed Venous 36(L) 40 - 46 mmHg [facility] pO2 Mixed Venous 33(L) 35 - 42 mmHg [facility] HCO3 Mixed Venous 23.2 22.0 - 26.0 mmol/L [facility] TCO2 Mixed Venous 24.3(L) 25.0 - 29.0 mmol/L [facility] Base Excess Venous -0.8 -2.0 - 2.0 mmol/L [facility] Hemoglobin Mixed Venous 12.2 12.0 - 15.5 g/dL [facility] Oxyhemoglobin Mixed Venous 69.3 66.0 - 77.0 % [facility] Carboxyhemoglobin Venous 0.4 0.0 - 3.0 % [facility] Methemoglobin 0.3 0.0 - 2.0 % [facility] FI O2 Mixed Venous 40.0 % [facility] Blood specimen (specimen) BLOOD SPECIMEN / Unknown 04/05/2015 6:24 PM CDT 04/05/2015 6:24 PM CDT Narrative [facility] - 04/05/2015 6:35 PM CDT [id number] Joyce Guzman MD LAB - BLOOD GASES OR DERABLES [address] [phone] * GROSS + MICRO EXAM (07/19/2000 8:13 AM 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) Result CASE NUMBER [id number] Comment: ORDERING PHYSICIAN JAQUELIN RAE [facility] SPECIMEN TYPE Placenta Non 3rd Tr Date 07/19/2000 Physician Beau Rae Gross Description Two separate specimens are received in formalin labeled with the patient's name. The first container is additionally labeled placenta and consists of a single placenta with attached membranes and cord weighing 320 grams in toto. The placental disc measures 13.5 x 15 x up to 2 cm. in thickness. The membranes are of a translucent pinkish-olmedo and are attached marginally. The umbilical cord has a somewhat eccentric insertion, inserting up to 3.5 cm. from the nearest margin. The umbilical cord measures 12 cm. in length and up to 1.1 cm. in diameter. On cut section there are three vessels identified. The surface has a glistening bluish-olmedo color with the usual vascular arcade and no nodules. The maternal surface is a luna-pink, olmedo and soft. On serial sectioning the parenchyma is luna, lightish pink with no apparent areas of infarction or lesions noted grossly. Functional Tester sections are submitted as follows cross section of umbilical cord and membranes in cassette A premium representative section of surface in cassette B premium representative section of maternal surface and placenta are in cassette C. The next container is labeled with the patient's name and stillborn boy Gui . The fetus will be referred for post mortem examination. MC/ Microscopic Exam Sections of the umbilical cord show three vessels with no inflammation or thrombosis. Sections of the membranes are unremarkable. Sections of the placenta show medium to large immature villi. There are no viral inclusions and no villitis identified. There are no areas of infarction identified. / Diagnosis I. Placenta A. Umbilical cord - Three vessels present, - No pathologic diagnosis B. Membranes - No pathologic diagnosis C. Placenta - Second trimester placenta, weight 320 gms. II. Stillborn A. Referred for post mortem examination. See [id number], (autopsy report to follow). [facility] Handstitching Machine Armhole Feller [facility] Pathologist Xochilt Adam M.D. [place]. 07/21/2000 0855 <1> CPT code [id number] MISCELLANEOUS SAMPLES / Unknown 07/19/2000 8:13 AM 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 07/19/2000 8:13 AM 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 Historical Provider LAB - PATHOLOGY/C YTOLOGY ORDERABLES Care Teams Human Resources Designate Relationship Specialty Start Date End Date Josi Patel, STAFF AIR TACTICAL OFFICER-CONSTRUCTION ANALYST [address] [address] PCP - General Nurse Practitioner Family 04/10/24
--- OUTSIDE RECORDS SUMMARY | 2024-08-25 11:32 | XMS_ITS | Clinical Summary ---
Author Organization [facility] [employer] Address [address] [place] [address] Care Team Providers Care Lunchroom Monitor Name Role Phone Josi Patel Dereje THOMPSONN-SALES SERVICE EXECUTIVE Primary Care Provi jesus Source Comments [employer],non-owned Affiliates and Associated Physician Practices is amultiple site organization consisting of ambulatory clinics and hospital sitesin [place], [place], [place] and [place]. This disclosure is being madepursuant to the Care Everywhere program and may not contain all information available regarding this patient. Last updated 18.[employer] Allergies No known active allergies Medications * Be aware that medications may not be up to date on this document. Alwaysverify current medications with the patient. Medication Sig Dispensed Refills Start Date End Date Status ipratropium (ATROVENT) 0.06 % nasal spray [place] 2 sprays into each nostril 3 times [...] 04/10/2024 10:15 AM CDT Plan of Treatment Health Maintenance Due Date Last Done Comments COLOGUARD (AGES 45-75) - COLON CA SCREENING 1979 COLON MONITORING 1979 COLONOSCOPY - COLON CA SCREENING 1979 CT COLONOGRAPHY - COLON CA SCREENING 1979 Colorectal Cancer Screening 1979 FIT - COLON CA SCREENING 1979 FLEX SIG - COLON CA SCREENING 1979 LIPID TESTING 1979 MAMMOGRAM 1979 PAP SMEAR 1979 HIV SCREENING 1994 HEPATITIS C SCREENING 05/27/1997 DTAP/TDAP/TD VACCINES (1 - Tdap) 1998 HEPATITIS B VACCINE (1 of 3 - 19+ 3-dose series) 1998 PNEUMOCOCCAL VACCINE (1 of 2 - PCV) 1998 COVID-19 VACCINE (3 - season) 2024 01/10/2021, 12/04/2020 INFLUENZA VACCINE (#1) 2024 , 03/26/2022, 03/12/2021, Additional history exists DEPRESSION SCREENING 06/14/2024 ZOSTER VACCINE (1 of 2) 2029 HIB VACCINE Aged Out No longer eligi ble based on patient's age to complete this topic HPV VACCINE Aged Out No longer eligi ble based on patient's age to complete this topic MENINGOCOCCAL (Group B) VACCINE SHARED DECISION-MAKING Aged Out No longer eligible based on patient's age to complete this topic MENINGOCOCCAL GROUPS A/C/Y/W VACCINE Aged Out No longer eligible based on patient's age to complete this topic Care Teams Lunchroom Monitor Relationship Specialty Start Date End Date Josi Patel, NOVELTY TWISTER OPERATOR-SALES SERVICE EXECUTIVE [address] [facility] [address] [place] [address] PCP - General Nurse Practitioner Family 04/10/24
--- OUTSIDE RECORDS SUMMARY | 2024-08-25 11:32 | XMS_ITS | Data Portability ---
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 Name Role Phone LOGAN RAMIREZ Primary Care Provider JOSI PATEL Primary Care Provider Assessment Encounter Date Assessment Date Assessment LastModified by Organization Details LastModified Time 05/09/2024 05/09/2024 Pt given a sample of Ozempic will f/u in 4 weeks pt to continue Metformin [email or web address] Not available 05/09/2024 22:58:40 Plan of Treatment Reminders Order Date Submit Date Provider Last Modified By Organization Details Last Modified Time Details Appointments ANY 15 2024 09:00A M Josi Patel NP Not available Not available Not available ANY 10 2024 10:50A M Joe Edwards MD Not available Not available Not available Lab HbA1c (hemogl obin A1c), blood 2024 025 [email or web address] In-Office Order, Internal Use Only DO Not Attach Compendium DO Not Attach Compendium, Do Not Delete/merge, [id number] 08/08/2024 17:19:52 glucose , fingers tick, blood 2024 025 [email or web address] In-Office Order, Internal Use Only DO Not Attach Compendium DO Not Attach Compendium, Do Not Delete/merge, [id number] 08/08/2024 17:19:52 HbA1c (hemogl obin A1c), blood 2023 024 [email or web address] In-Office Order, Internal Use Only DO Not Attach Compendium DO Not Attach Compendium, Do Not Delete/merge, [id number] 05/09/2024 21:32:00 glucose , fingers tick, blood 2023 [email or web address] In-Office Order, Internal Use Only DO Not Attach Compendium DO Not Attach Compendium, Do Not Delete/merge, [id number] 05/09/2024 21:32:00 C-pepti de, serum 2023 [facility], [address] [place] [address] Edu[address], [address], [place], [address], 05/11/2024 06:20:19 BMP, serum or plasma 2023 [facility], [address] [place], [place] [address]lorena Denny, [address], [place], [address], 05/11/2024 06:20:22 lipid panel, serum 2023 [facility], [address] [place] [address] Edu[address], [address], [place], [address], 05/11/2024 06:20:20 vitamin D, 25-hydr oxy, total, serum 2023 [facility], [address] [place] [address] Edu[address], [address], [place], [address], 05/11/2024 06:20:27 TSH, ultra-s ensitiv e, serum 2023 [facility], [address] [place] [address] Edu[address], [address], [place], [address], 05/11/2024 06:20:23 chlamyd ia trachom atis + neisser ia gonorrh oeae + trichom onas vaginal is rRNA panel, DAE+pro be 2023 [facility], [address] [place] [address] [address], [address], [place], [address], 05/11/2024 06:20:18 RPR (rapid plasma reagin) , serum 2023 024 [facility], [address], [address], [place], [address], 05/11/2024 06:20:25 urinaly sis complet e, reflex culture 2023 024 [facility], [address], [address], [place], [address], 05/11/2024 06:20:24 HIV 1 + 2 RNA panel, DAE+pro be, serum or plasma 2023 024 [facility], [address], [address], [place], [address], 05/11/2024 06:20:31 Referral diabeti c nutriti on educati on referra l [address] [facility] [employer] [employer] Nutrition Dietitian, [address] [place], [address], 08/08/2024 15:23:50 podiatr ist referra l [address], [address], [place], [address], 08/08/2024 15:25:09 diabeti c ophthal mology referra l [address], [address], [place], [address], 08/08/2024 15:25:09 podiatr ist referra l 2023 024 [facility], [address], [place], [address], 05/17/2024 15:12:22 diabeti c ophthal mology referra l 2023 024 [email or web address] [address] [facility], [address], [place], [address], 05/17/2024 15:11:07 diabeti c nutriti on educati on referra l 2023 024 [facility] [employer] Nutrition Dietitian, [address] [place], [address], 05/18/2024 15:10:50 Procedures None recorde d. Surgeries None recorde d. Imaging MAMMO, screeni ng, bilater al 2024 025 [facility] ([facility] [address] [place], [address], 08/14/2024 10:14:06 Medication Orders losarta n 50 mg-hydr ochloro thiazid e 12.5 mg tablet 2024 025 [facility]80284, [address] [place] [address], [id number], 08/08/2024 15:17:57 Ozempic 0.25 mg or 0.5 mg (2 mg/1.5 mL) subcuta neous pen injecto r 2024 025 [facility] #20507, [address] [place] [address], [id number], 08/08/2024 15:17:50 Singula ir 10 mg tablet 2024 025 [facility] #82723, [address] [place] [address], [id number], 07/31/2024 11:55:57 Flonase Allergy Relief 50 mcg/act uation nasal spray,s uspensi on 2024 [facility] #88115, [address] [place] [address], [id number], 07/31/2024 11:55:53 Symbico rt 160 mcg-4.5 mcg/act uation HFA aerosol inhaler 2024 025 [facility] #61173, [address] [place] [address], [id number], 07/31/2024 11:55:56 Spiriva Respima t 2.5 mcg/act uation solutio n for inhalat ion 2024 [facility] #55198, [address] [place] [address], [id number], 07/31/2024 11:55:53 albuter ol sulfate HFA 90 mcg/act uation aerosol inhaler 2024 025 [facility] #29211, [address] [place] [address], [id number], 07/31/2024 11:56:01 ipratro pium 0.5 mg-albu terol 3 mg (2.5 mg base)/3 mL nebuliz ation soln 2024 [facility] #00585, [address] [place] [address], [id number], 07/31/2024 11:55:55 Dupixen t 300 mg/2 mL subcuta neous pen injecto r 2024 025 [facility] #09971, [address] [place] [address], [id number], 07/31/2024 11:55:57 Ozempic 0.25 mg or 0.5 mg (2 mg/1.5 mL) subcuta neous pen injecto r 2023 [email or web address] [facility] #84676, [address] [place] [address], [id number], 05/09/2024 22:58:48 metform in 500 mg tablet 2023 [facility] #90253, [address] [place] [address], [id number], 05/30/2024 15:00:06 Blood Glucose Test strips 2023 [facility] #36911, [address] [place] [address], [id number], 05/09/2024 11:48:46 Alcohol Pads 2023 024 [facility] #06383, [address] [place] [address], [id number], 05/09/2024 11:48:32 losarta n 25 mg tablet 2023 025 [facility] #40346, [address] [place] [address], [id number], 08/22/2024 11:30:00 rosuvas tatin 10 mg tablet 2023 024 [facility], [address] [place] [address], [id number], 05/09/2024 11:51:34 Patient TargetsNo targets recorded. Patient Instructions Encounter Date Encounter Id Patient Instructions Last Modified By Organization Details Last Modified Time 04/24/2024 [id number] allergies: care instructions ajamous Not available 04/24/2024 10:23:07 managing your allergies: care instructions ajamous Not available 04/24/2024 10:23:07 sleep apnea: car e instructions ajamous Not available 04/24/2024 10:23:08 insomnia: care instructions ajamous Not available 04/24/2024 10:23:07 When You Want to Lose Weight: Care Instructions ajamous Not available 04/24/2024 10:23:07 07/31/2024 [id number] allergies: care instructions ajamous Not available 07/31/2024 11:55:43 managing your allergies: care instructions ajamous Not available 07/31/2024 11:55:43 sleep apnea: car e instructions ajamous Not available 07/31/2024 11:55:43 insomnia: care instructions ajamous Not available 07/31/2024 11:55:43 When You Want to Lose Weight: Care Instructions ajamous Not available 07/31/2024 11:55:43 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 for Referral 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 Diab etes mellitus Referring Physician: Josi Patel [facility], Encounter Date: 05/09/2024 Diabetic Ophthalmology Refer ral for Diabetes mellitus Referring Physician: Josi Patel [facility], Encounter Date: 05/09/2024 Diabetic Nutrition Education 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 Diabetes mellitus Referring Physician: Josi Patel [facility], Encounter Date: 05/09/2024 Diabetic Nutrition Education 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 Diabetes mellitus Referring Physician: Josi Patel [facility], Encounter Date: 08/08/2024 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 Diab 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 mellitus Referring Physician: Josi Patel [facility], Encounter Date: 08/08/2024 Diabetic Ophthalmology Refer ral for Diabetes mellitus Referring Physician: Josi Patel [facility], Encounter Date: 08/08/2024 Results Created Date Observation Date Name Description Value Unit Range Abnormal Flag Note LastModifiedBy Organization Detail LastModifiedTime 04/10/2004/10/2024 Gluco se [Mass /volu me] in Arter ial blood glucose [mass/volume ] in capillary blood by glucometer 278 mg/dL low: 70mg/d Lhigh: 99mg/d L high Gluco se WB/PO C 278 (H) 70 - 99 mg/dL 04/10 1:21 PM CDT [facility] Not Available Not Available 07/25/2024 11:31:45 04/10/2004/10/2024 Gluco se [Mass /volu me] in Arter ial blood specimen source identified Cap Finger stick Speci men Type Cap Finge rstic k 04/10 1:21 PM T [facility] Not Available Not Available 07/25/2024 11:31:45 04/10/20 24 04/10/2024 Gluco se [Mass /volu me] in Arter ial blood interpretati on and review of laboratory results Abnorm al Not Available Not Available 11:31:45 04/10/2004/10/2024 Lacta te [Mole s/vol ume] in Blood lactate [moles/volum e] in serum or plasma 1 mmol/ L high: 2mmol/ L Lacti c Acid 1.0 <=2.0 mmol/ L 04/10 12:18 PM T [facility] Not Available Not Available 07/25/2024 11:31:45 04/10/20 24 04/10/2024 Lacta te [Mole s/vol ume] in Blood interpretati on and review of laboratory results Normal Not Available Not Available 07/15 11:31:45 04/10/2004/10/2024 Urina lysis panel - Urine by Auto color of urine by auto Yellow text: straw, yellow Color UA Yello w Straw , Yello w 04/10 12:05 PM [facility] Not Available Not Available 07/25/2024 11:31:45 04/10/2004/10/2024 Urina lysis panel - Urine by Auto clarity in urine by refractometr y automated Slt Cloudy text: clear abnormal Alexandra ty UA Slt [place] y (A) Clear 04/10 12:05 PM [facility] Not Available Not Available 07/25/2024 11:31:45 04/10/20 24 04/10/2024 Urina lysis panel - Urine by Auto glucose [presence] in urine by test strip 3+ text: negati ve abnormal Gluco se UA 3+ (A) Negat divya 04/10 12:05 PM CDT [facility] Not Available Not Available 07/25/2024 11:31:45 04/10/2004/10/2024 Urina lysis panel - Urine by Auto bilirubin.to ivory [presence] in urine by test strip Negati ve text: negati ve Bilir ubin UA Negat divya Negat divya 04/10 12:05 PM CDT [facility] Not Available Not Available 07/25/2024 11:31:45 04/10/2004/10/2024 Urina lysis panel - Urine by Auto ketones [presence] in urine by automated test strip Negati ve text: negati ve [place] e UA Negat divya Negat divya 04/10 12:05 PM CDT [facility] Not Available Not Available 07/25/2024 11:31:45 04/10/2004/10/2024 Urina lysis panel - Urine by Auto specific gravity of urine by test strip 1.023 low: 1.005h igh: 1.03 Speci fic Gravi ty UA 1.023 1.005 - 1.030 04/10 12:05 PM CDT [facility] Not Available Not Available 07/25/2024 11:31:45 04/10/2004/10/2024 Urina lysis panel - Urine by Auto hemoglobin [presence] in urine by test strip Negati ve text: negati ve Blood UA Negat divya Negat divya 04/10 12:05 PM CDT [facility] Not Available Not Available 07/25/2024 11:31:45 04/10/2004/10/2024 Urina lysis panel - Urine by Auto pH of urine by test strip 5 pH low: 5pHhig h: 8pH pH UA 5.0 5.0 - 8.0 pH 04/10 12:05 PM CDT [facility] Not Available Not Available 07/25/2024 11:31:45 04/10/2004/10/2024 Urina lysis panel - Urine by Auto protein [presence] in urine by test strip Negati ve text: negati ve Prote in UA Negat divya Negat divya 04/10 12:05 PM CDT [facility] Not Available Not Available 07/25/2024 11:31:45 04/10/2004/10/2024 Urina lysis panel - Urine by Auto urobilinogen [mass/volume ] in urine by automated test strip Negati ve text: negati ve mg/dL Urobi linog en UA Negat divya Negat divya mg/dL 04/10 12:05 PM CDT [facility] Not Available Not Available 07/25/2024 11:31:45 04/10/20 24 04/10/2024 Urina lysis panel - Urine by Auto nitrite [presence] in urine by test strip Negati ve text: negati ve Nitri te UA Negat divya Negat divya 04/10 12:05 PM CDT [facility] Not Available Not Available 07/25/2024 11:31:45 04/10/20 24 04/10/2024 Urina lysis panel - Urine by Auto leukocyte esterase [presence] in urine by test strip Negati ve text: negati ve Leuko cyte UA Negat divya Negat divya 04/10 12:05 PM CDT [facility] Not Available Not Available 07/25/2024 11:31:45 04/10/2004/10/2024 Urina lysis panel - Urine by Auto microscopic method - urine Urine micros copy not indica gregory Urine Micro scopy Urine micro scopy not indic ated 04/10 12:05 PM CDT [facility] Not Available Not Available 07/25/2024 11:31:45 04/10/20 24 04/10/2024 Urina lysis panel - Urine by Auto service comment Cultur e not indica gregory Refle x Statu s Cultu re not indic ated 04/10 12:05 PM CDT [facility] Not Available Not Available 07/25/2024 11:31:45 04/10/20 24 04/10/2024 Urina lysis panel - Urine by Auto Unknown Analyte Not Available Not Available 07/15 11:31:45 04/10/20 24 04/10/2024 Urina lysis panel - Urine by Auto interpretati on and review of laboratory results Abnorm al Not Available Not Available 11:31:45 04/10/2004/10/2024 Beta hydro xybut yrate [Mole s/vol ume] in Serum or Plasm a beta hydroxybutyr ate [moles/volum e] in serum or plasma high: 0.5mmo l/L Beta- Stuart xybut yrate <0.50 <0.50 mmol/ L 04/10 12:17 PM CDT [facility] Not Available Not Available 07/25/2024 11:31:45 04/10/20 24 04/10/2024 Beta hydro xybut yrate [Mole s/vol ume] in Serum or Plasm a Unknown Analyte Result s >1.5 mmol/L may be indica tive of diabet ic ketoac idosis . Use in conjun ction with Serum Glucos e levels . Resul ts >1.5 mmol/ L may be indic ative of diabe tic ketoa cidos is. Use in conju nctio n with Serum Gluco se level s. Not Available Not Available 07/25/2024 11:31:45 04/10/2004/10/2024 Beta hydro xybut yrate [Mole s/vol ume] in Serum or Plasm a interpretati on and review of laboratory results Normal Not Available Not Available 07/15 11:31:45 04/10/2004/10/2024 Hemog lobin A1c/H emogl obin. total in Blood hemoglobin A1C/hemoglob in.total in blood 9.1 % high: 5.7% high Hemog lobin A1c 9.1 (H) <5.7 % 04/10 12:17 PM CDT [facility] Not Available Not Available 07/25/2024 11:31:45 04/10/2004/10/2024 Hemog lobin A1c/H emogl obin. total in Blood glucose mean value [mass/volume ] in blood estimated from glycated hemoglobin 214 mg/dL Estim ated [place] ge Gluco se 214 mg/dL 04/10 12:17 PM CDT [facility] Not Available Not Available 07/25/2024 11:31:45 04/10/20 24 04/10/2024 Hemog lobin A1c/H emogl obin. total in Blood Unknown Analyte HbA1c Interp retati on: Normal : < 5.7% Pre-di abetes : 5.7-6. 4% Diabet es: Equal to or greate r than 6.5% Test result s diagno stic of diabet es should be repeat ed for confir mation . Treatm ent target values recomm ended by ADA and other clinic al organi zation s should be used to evalua te metabo lic contro l in patien ts. This test should not replac e glucos e testin g for patien ts with Type 1 diabet es, pediat balta patien ts, or pregna nt women. Falsel y low HbA1c result s may be observ ed in patien ts with clinic al condit ions that shorte n erythr ocyte life span or decrea se mean erythr ocyte age such as the presen ce of unstab le hemogl obin varian ts, elevat ed hemogl obin F level or other causes of hemoly tic anemia . HbA1c may not accura tely reflec t glycem ic contro l when clinic al condit ions that affect erythr ocyte surviv al are presen t. Severe Iron defici ency anemia may yield falsel y high result s. Hemogl obin A1c assay should not be used to diagno se or monito r diabet es in patien ts with malign sherman, recent blood transf usion, chroni c kidney or liver diseas e. This method may yield falsel y low result s when hemogl obin (HbF) exceed s 5% in the specim en. The [place]agne Alinit y assay for the measur ement of HbA1c is a Nation al Glycoh emoglo bin Standa rdizat ion Progra m (NGSP) certif ied method . HbA1c Inter preta tion: Sara l: < 5.7% Pre-d iabet es: 5.7-6 .4% Diabe brandy: Equal to or great er than 6.5% Test resul ts diagn ostic of diabe brandy shoul d be repea gregory for confi rmati on. Treat ment targe t value s recom ana luisa d by ADA and other clini ramona organ izati ons shoul d be used to evalu ate metab olic contr ol in patie nts. This test shoul d not repla ce gluco se testi ng for patie nts with Type 1 diabe brandy, pedia tric patie nts, or pregn ant women . False ly low HbA1c resul ts may be obser nancy in patie nts with clini ramona condi tions that short en eryth rocyt e life span or decre ase mean eryth rocyt e age such as the prese nce of unsta ble hemog lobin varia nts, eleva gregory hemog lobin F level or other cause s of hemol ytic anemi a. HbA1c may not accur ately refle ct glyce svitlana contr ol when clini ramona condi tions that affec t eryth rocyt e survi rey are prese nt. Sever e Iron defic iency anemi a may yield false ly high resul ts. Hemog lobin A1c assay shoul d not be used to diagn ose or monit or diabe brandy in patie nts with malig hieu , recen t blood trans fusio n, chron ic kidne y or liver disea se. This metho d may yield false ly low resul ts when hemog lobin (HbF) excee ds 5% in the speci men. The Abbot t Alini ty assay for the measu remen t of HbA1c is a Natio nal Glyco hemog lobin Stand laurie ation Progr am (NGSP ) certi fied metho d. Not Available Not Available 07/25/2024 11:31:45 04/10/20 24 04/10/2024 Hemog lobin A1c/H emogl obin. total in Blood interpretati on and review of laboratory results Abnorm al Not Available Not Available 11:31:45 04/10/20 24 04/10/2024 CBC W Auto Diffe renti al panel - Blood leukocytes [#/volume] in blood by automated count 13.6 text: 4.0 - 10.7 x10e9/ L high WBC 13.6 (H) 4.0 - 10.7 x10E9 /L 04/10 12:03 PM CDT [facility] Not Available Not Available 07/25/2024 11:31:44 04/10/20 24 04/10/2024 CBC W Auto Diffe renti al panel - Blood erythrocytes [#/volume] in blood by automated count 5.11 text: 3.90 - 5.20 x10e12 /L RBC Count 5.11 3.90 - 5.20 x10E1 2/L 04/10 12:03 PM CDT [facility] Not Available Not Available 07/25/2024 11:31:44 04/10/20 24 04/10/2024 CBC W Auto Maya fox panel - Blood hemoglobin [mass/volume ] in blood 13.7 g/dL low: 11.9g/ dLhigh : 15.8g/ dL Hemog lobin 13.7 11.9 - 15.8 g/dL 04/10 12:03 PM CDT [facility] Not Available Not Available 07/25/2024 11:31:44 04/10/20 24 04/10/2024 CBC W Auto Maya fox panel - Blood hematocrit [volume fraction] of blood by automated count 43.1 % low: 34.8%h igh: 46.1% Hemat ocrit 43.1 34.8 - 46.1 % 04/10 12:03 PM CDT [facility] Not Available Not Available 07/25/2024 11:31:44 04/10/20 24 04/10/2024 CBC W Auto Maya fox panel - Blood MCV [entitic volume] by automated count 84.3 fL low: 80fLhi gh: 98fL MCV 84.3 80.0 - 98.0 fL 04/10 12:03 PM CDT [facility] Not Available Not Available 07/25/2024 11:31:44 04/10/20 24 04/10/2024 CBC W Auto Maya fox panel - Blood MCH [entitic mass] by automated count 26.8 pg low: 26.7pg high: 33.6pg MCH 26.8 26.7 - 33.6 pg 04/10 12:03 PM CDT [facility] Not Available Not Available 07/25/2024 11:31:44 04/10/20 24 04/10/2024 CBC W Auto Maya fox panel - Blood MCHC [mass/volume ] by automated count 31.8 g/dL low: 31.7g/ dLhigh : 36.3g/ dL MCHC 31.8 31.7 - 36.3 g/dL 04/10 12:03 PM CDT [facility] Not Available Not Available 07/25/2024 11:31:44 04/10/20 24 04/10/2024 CBC W Auto Diffe juan manuel al panel - Blood erythrocyte distribution width [ratio] by automated count 12.3 % low: 11.3%h igh: 14.8% RDW-C V 12.3 11.3 - 14.8 % 04/10 12:03 PM CDT [facility] Not Available Not Available 07/25/2024 11:31:44 04/10/2004/10/2024 CBC W Auto Diffe juan manuel fox panel - Blood platelets [#/volume] in blood by automated count 214 text: 150 - 420 x10e9/ L Plate let Count 214 150 - 420 x10E9 /L 04/10 12:03 PM CDT [facility] Not Available Not Available 07/25/2024 11:31:44 04/10/2004/10/2024 CBC W Auto Diffe juan manuel fox panel - Blood platelet mean volume [entitic volume] in blood by automated count 10.6 fL low: 7.8fLh igh: 11.4fL MPV 10.6 7.8 - 11.4 fL 04/10 12:03 PM T [facility] Not Available Not Available 07/25/2024 11:31:44 04/10/2004/10/2024 CBC W Auto Diffdonya fox panel - Blood neutrophils/ 100 leukocytes in blood by automated count 66.1 % low: 41%hig h: 74% Neutr ophil % 66.1 41.0 - 74.0 % 04/10 12:03 PM T [facility] Not Available Not Available 07/25/2024 11:31:44 04/10/20 24 04/10/2024 CBC W Auto Diffe juan manuel al panel - Blood lymphocytes/ 100 leukocytes in blood by automated count 26.6 % low: 17%hig h: 47% Lymph ocyte % 26.6 17.0 - 47.0 % 04/10 12:03 PM CDT [facility] Not Available Not Available 07/25/2024 11:31:44 04/10/20 24 04/10/2024 CBC W Auto Diffe renti al panel - Blood monocytes/10 0 leukocytes in blood by automated count 4.6 % low: 3%high : 11% Monoc yte % 4.6 3.0 - 11.0 % 04/10 12:03 PM CDT [facility] Not Available Not Available 07/25/2024 11:31:44 04/10/20 24 04/10/2024 CBC W Auto Diffe renti al panel - Blood eosinophils/ 100 leukocytes in blood by automated count 1.8 % low: 0%high : 7% Eosin ophil % 1.8 0.0 - 7.0 % 04/10 12:03 PM CDT [facility] Not Available Not Available 07/25/2024 11:31:44 04/10/20 24 04/10/2024 CBC W Auto Diffe renti al panel - Blood basophils/10 0 leukocytes in blood by automated count 0.4 % low: 0%high : 1.6% Basop hil % 0.4 0.0 - 1.6 % 04/10 12:03 PM CDT [facility] Not Available Not Available 07/25/2024 11:31:44 04/10/20 24 04/10/2024 CBC W Auto Diffe renti al panel - Blood immature granulocytes /100 leukocytes in blood by automated count 0.5 % low: 0%high : 1% Immat ure Granu locyt es % 0.5 0.0 - 1.0 % 04/10 12:03 PM CDT [facility] Not Available Not Available 07/25/2024 11:31:44 04/10/20 24 04/10/2024 CBC W Auto Diffe renti al panel - Blood neutrophils [#/volume] in blood by automated count 8.94 text: 1.60 - 7.50 x10e9/ L high Neutr ophil Absol [place] 8.94 (H) 1.60 - 7.50 x10E9 /L 04/10 12:03 PM CDT [facility] Not Available Not Available 07/25/2024 11:31:44 04/10/20 24 04/10/2024 CBC W Auto Diffe renti al panel - Blood lymphocytes [#/volume] in blood by automated count 3.61 text: 1.00 - 4.40 x10e9/ L Lymph ocyte Absol [place] 3.61 1.00 - 4.40 x10E9 /L 04/10 12:03 PM CDT [facility] Not Available Not Available 07/25/2024 11:31:44 04/10/20 24 04/10/2024 CBC W Auto Diffe renti al panel - Blood monocytes [#/volume] in blood by automated count 0.62 text: 0.15 - 1.00 x10e9/ L Monoc yte Absol [place] 0.62 0.15 - 1.00 x10E9 /L 04/10 12:03 PM CDT [facility] Not Available Not Available 07/25/2024 11:31:44 04/10/2004/10/2024 CBC W Auto Diffe renti al panel - Blood eosinophils [#/volume] in blood 0.25 text: 0.00 - 0.60 x10e9/ L Eosin ophil Absol [place] 0.25 0.00 - 0.60 x10E9 /L 04/10 12:03 PM CDT [facility] Not Available Not Available 07/25/2024 11:31:44 04/10/20 24 04/10/2024 CBC W Auto Diffe renti al panel - Blood basophils [#/volume] in blood by automated count 0.06 text: 0.00 - 0.13 x10e9/ L Basop hil Absol [place] 0.06 0.00 - 0.13 x10E9 /L 04/10 12:03 PM CDT [facility] Not Available Not Available 07/25/2024 11:31:44 04/10/20 24 04/10/2024 CBC W Auto Diffe renti al panel - Blood interpretati on and review of laboratory results Abnorm al Not Available Not Available 11:31:44 04/10/20 24 04/10/2024 Compr ehens divya metab olic 2000 panel - Serum or Plasm a glucose [mass/volume ] in serum or plasma 305 mg/dL low: 70mg/d Lhigh: 99mg/d L high Gluco se 305 (H) 70 - 99 mg/dL 04/10 12:17 PM CDT [facility] Not Available Not Available 07/25/2024 11:31:44 04/10/20 24 04/10/2024 Compr ens divya metab ic 1999 panel - Serum or Plasm a sodium [moles/volum e] in serum or plasma 136 mmol/ L low: 136mmo l/Lhig h: 145mmo l/L Sodiu m 136 136 - 145 mmol/ L 04/10 12:17 PM CDT [facility] Not Available Not Available 07/25/2024 11:31:44 04/10/2004/10/2024 Compr ens divya metab ic 1999 panel - Serum or Plasm a potassium [moles/volum e] in serum or plasma 4.6 mmol/ L low: 3.5mmo l/Lhig h: 5.1mmo l/L Potas sium 4.6 3.5 - 5.1 mmol/ L 04/10 12:17 PM CDT [facility] Not Available Not Available 07/25/2024 11:31:44 04/10/20 24 04/10/2024 Compr [facility] divya metab ic 1999 panel - Serum or Plasm a chloride [moles/volum e] in serum or plasma 103 mmol/ L low: 98mmol /Lhigh : 107mmo l/L Chlor jessenia 103 98 - 107 mmol/ L 04/10 12:17 PM CDT [facility] Not Available Not Available 07/25/2024 11:31:44 04/10/20 24 04/10/2024 Compr ens divya metab ic 1999 panel - Serum or Plasm a carbon dioxide, total [moles/volum e] in serum or plasma 22 mmol/ L low: 22mmol /Lhigh : 29mmol /L CO2 22 22 - 29 mmol/ L 04/10 12:17 PM CDT [facility] Not Available Not Available 07/25/2024 11:31:44 04/10/2004/10/2024 [facility] [employer] divyaEnsenda [facility] 1999 panel - Serum or Plasm a calcium [mass/volume ] in serum or plasma 9.4 mg/dL low: 8.4mg/ dLhigh : 10.4mg /dL Calci um 9.4 8.4 - 10.4 mg/dL 04/10 12:17 PM CDT [facility] Not Available Not Available 07/25/2024 11:31:44 04/10/2004/10/2024 [facility] [employer] divyaEnsenda [facility] 1999 panel - Serum or Plasm a anion gap in blood 11 mmol/ L low: 6mmol/ Lhigh: 16mmol /L Anion Gap 11 6 - 16 mmol/ L 04/10 12:17 PM CDT [facility] Not Available Not Available 07/25/2024 11:31:44 04/10/2004/10/2024 [facility] [email or web address] divyaEnsenda [facility] 1999 panel - Serum or Plasm a urea nitrogen [mass/volume ] in serum or plasma 16 mg/dL low: 5.3mg/ dLhigh : 18.7mg /dL BUN 16 5.3 - 18.7 mg/dL 04/10 12:17 PM CDT [facility] Not Available Not Available 07/25/2024 11:31:44 04/10/20 24 04/10/2024 [facility] 1999 panel - Serum or Plasm a creatinine [mass/volume ] in serum or plasma 1.14 mg/dL low: 0.57mg /dLhig h: 1.11mg /dL high Creat inine 1.14 (H) 0.57 - 1.11 mg/dL 04/10 12:17 PM CDT [facility] Not Available Not Available 07/25/2024 11:31:44 04/10/2004/10/2024 [facility] 1999 panel - Serum or Plasm a alkaline phosphatase [enzymatic activity/vol ume] in serum or plasma 83 U/L low: 40U/Lh igh: 150U/L Alkal ine Phosp hatas e 83 40 - 150 U/L 04/10 12:17 PM CDT [facility] Not Available Not Available 07/25/2024 11:31:44 04/10/20 24 04/10/2024 Compr [email or web address] divya metab olic 1999 panel - Serum or Plasm a alanine aminotransfe rase [enzymatic activity/vol ume] in serum or plasma 28 U/L low: 0U/Lhi gh: 55U/L ALT 28 0 - 55 U/L 04/10 12:17 PM CDT [facility] Not Available Not Available 07/25/2024 11:31:44 04/10/20 24 04/10/2024 Compr [email or web address] divya Epoxy olic 1999 panel - Serum or Plasm a aspartate aminotransfe rase [enzymatic activity/vol ume] in serum or plasma 18 U/L low: 5U/Lhi gh: 34U/L AST 18 5 - 34 U/L 04/10 12:17 PM CDT [facility] Not Available Not Available 07/25/2024 11:31:44 04/10/20 24 04/10/2024 Compr [email or web address] divya Epoxy olic 1999 panel - Serum or Plasm a protein [mass/volume ] in serum or plasma 7.2 text: 6.4 - 8.3 gm/dL Prote in Total 7.2 6.4 - 8.3 gm/dL 04/10 12:17 PM CDT [facility] Not Available Not Available 07/25/2024 11:31:44 04/10/20 24 04/10/2024 Compr [employer] divya Epoxy olic 1999 panel - Serum or Plasm a albumin [mass/volume ] in serum or plasma 3.4 text: 3.4 - 5.0 gm/dL Album in 3.4 3.4 - 5.0 gm/dL 04/10 12:17 PM CDT [facility] Not Available Not Available 07/25/2024 11:31:44 04/10/2004/10/2024 Compr [email or web address] divya metab olic 1999 panel - Serum or Plasm a bilirubin.to ivory [mass/volume ] in serum or plasma 0.5 mg/dL low: 0.2mg/ dLhigh : 1.2mg/ dL Bilir ubin Total 0.5 0.2 - 1.2 mg/dL 04/10 12:17 PM CDT [facility] Not Available Not Available 07/25/2024 11:31:44 04/10/20 24 04/10/2024 Compr ehens divya metab olic 1999 panel - Serum or Plasm a glomerular filtration rate/1.73 sq M.predicted [volume rate/area] in serum, plasma or blood by creatinine-b ased formula (CKD-epi 2020) 61 text: >=90 mL/min /1.73 m2 low eGFR by CKD-E PI 61 (L) >=90 mL/mi n/1.7 3 m2 04/10 12:17 PM CDT [facility] Not Available Not Available 07/25/2024 11:31:44 04/10/20 24 04/10/2024 Compr ehens divya metab olic 1999 panel - Serum or Plasm a interpretati on and review of laboratory results Abnorm al Not Available Not Available 11:31:44 04/10/2004/10/2024 Chori ogona dotro [email or web address] eta subun it [Unit s/vol ume] in Serum or Plasm a choriogonado tropin.beta subunit [units/volum e] in serum or plasma text: mIU/mL hCG Quant itati ve <2.42 mIU/m L 04/10 12:25 PM CDT [facility] Not Available Not Available 07/25/2024 11:31:44 04/10/20 24 04/10/2024 Chori ogona dotro pin.b eta subun it [Unit s/vol ume] in Serum or Plasm a Unknown Analyte hCG Refere nce Range, mIU/mL : Nonpre gnant Female s 0-6.0 Perime nopaus al Female s ages 41-55* 0-7.7 Postme nopaus al Female s age >55* 0-14 Pregna nt Female s, Weeks after Last Menstr ual Period 0.2-1 week 5-50 1 - 2 weeks 50-500 2 - 3 weeks 100-50 00 3 - 4 weeks 500-10 ,000 4 - 5 weeks 1000-5 0,000 5 - 6 weeks 10,000 -100,0 00 6 - 8 weeks 15,000 -200,0 00 2 - 3 months 10,000 -100,0 00 Tropho blasti c Diseas e >100,0 00 *In higher than expect ed hCG in female s > age 40, a serum FSH >20 IU/L makes pregna ncy unlike ly. hCG Refer ence Range , mIU/m L: Nonpr egnan t Femal es 0-6.0 Perim enopa usal Femal es ages 41-55 * 0-7.7 Postm enopa usal Femal es age >55* 0-14 Pregn ant Femal es, Weeks after Last Menst rual Perio d 0.2-1 week 5-50 1 - 2 weeks 50-50 0 2 - 3 weeks 100-5 000 3 - 4 weeks 500-1 0,000 4 - 5 weeks 1000- 50,00 0 5 - 6 weeks 10,00 0-100 ,000 6 - 8 weeks 15,00 0-200 ,000 2 - 3 month s 10,00 0-100 ,000 Troph oblas tic Disea se >100, 000 *In highe r than expec gregory hCG in femal es > age 40, a serum FSH >20 IU/L makes pregn sherman unlik arian. Not Available Not Available 07/25/2024 11:31:44 04/10/2004/10/2024 Magne sium [Mass /volu me] in Serum or Plasm a magnesium [mass/volume ] in serum or plasma 1.7 mg/dL low: 1.6mg/ dLhigh : 2.6mg/ dL Magne sium 1.7 1.6 - 2.6 mg/dL 04/10 12:17 PM CDT [facility] Not Available Not Available 07/25/2024 11:31:44 04/10/2004/10/2024 Magne sium [Mass /volu me] in Serum or Plasm a interpretati on and review of laboratory results Normal Not Available Not Available 07/15 11:31:44 05/09/20 24 05/10/2024 CT, NG, TRICH VAG BY DAE chlamydia by DAE NEGATI VE negati ve Not Available [facility] ([facility]) [address], [place], [address], 05/11/2024 06:20:18 05/09/2005/10/2024 CT, NG, TRICH VAG BY DAE gonococcus by DAE NEGATI VE negati ve Not Available [facility] ([facility]) [address] [place], [address], 05/11/2024 06:20:18 05/09/20 24 05/10/2024 CT, NG, TRICH VAG BY DAE trich vag by DAE NEGATI VE negati ve Not Available [facility] ([facility]) [address] [place], [address], 05/11/2024 06:20:18 05/09/2005/10/2024 INSUL IN AND C-PEP TIDE, SERUM insulin 17.3 uIU/m L 2.6-24 .9 Not Available [facility] ([facility]) [address] [place], [address], 05/11/2024 06:20:19 05/09/20 24 05/10/2024 INSUL IN AND C-PEP TIDE, SERUM C-peptide, serum 3.6 NG/mL 1.1-4. 4 C-Pep tide refer ence inter rey is for fasti ng patie nts. Not Available [facility] ([facility]) [address] [place], [address], 05/11/2024 06:20:19 05/09/20 24 05/10/2024 LIPID PANEL cholesterol, total 145 mg/dL 100-19 9 Not Available [facility] ([facility]) [address] [place], [address], 05/11/2024 06:20:20 05/09/2005/10/2024 LIPID PANEL triglyceride s 106 mg/dL 0-149 Not Available [facility] ([facility]) [address] [place], [address], 05/11/2024 06:20:20 05/09/20 24 05/10/2024 LIPID PANEL HDL cholesterol 75 mg/dL >39 Not Available [facility] ([facility]) [address], [place], [address], 05/11/2024 06:20:20 05/09/20 24 05/10/2024 LIPID PANEL VLDL cholesterol ramona 19 mg/dL 5-40 Not Available [facility] ([facility]) [address], [place], [address], 05/11/2024 06:20:20 05/09/20 24 05/10/2024 LIPID PANEL LDL chol calc ([facility]) 51 mg/dL 0-99 Not Available [facility] ([facility]) [address], [place], [address], 05/11/2024 06:20:20 05/09/20 24 05/10/2024 MICRO SCOPI C EXAMI NATIO N WBC None seen /hpf 0-5 Not Available [facility] ([facility]) [address], [place], [address], 05/11/2024 06:20:21 05/09/20 24 05/10/2024 MICRO SCOPI C EXAMI NATIO N RBC 0-2 /hpf 0-2 Not Available [facility] ([facility]) [address], [place], [address], 05/11/2024 06:20:21 05/09/20 24 05/10/2024 MICRO SCOPI C EXAMI NATIO N epithelial cells (non renal) 0-10 /hpf 0-10 Not Available [facility] ([facility]) [address], [place], [address], 05/11/2024 06:20:21 05/09/20 24 05/10/2024 MICRO SCOPI C EXAMI NATIO N casts None seen /lpf nonese en Not Available [facility] ([facility]) [address], [place], [address], 05/11/2024 06:20:21 05/09/20 24 05/10/2024 MICRO SCOPI C EXAMI NATIO N bacteria None seen nonese en/few Not Available [facility] ([facility]) [address], [place], [address], 05/11/2024 06:20:21 05/09/20 24 05/10/2024 BMP7+ EGFR glucose 123 mg/dL 70-99 above high normal Not Available [facility] ([facility]) [address], [place], [address], 05/11/2024 06:20:22 05/09/20 24 05/10/2024 BMP7+ EGFR BUN 12 mg/dL 6-24 Not Available [facility] ([facility]) [address], [place], [address], 05/11/2024 06:20:22 05/09/20 24 05/10/2024 BMP7+ EGFR creatinine 0.89 mg/dL 0.57-1 .00 Not Available [facility] ([facility]) [address] [place], [address], 05/11/2024 06:20:22 05/09/20 24 05/10/2024 BMP7+ EGFR eGFR 82 mL/mi n/1.7 3 >59 Not Available [facility] ([facility]) [address], [place], [address], 05/11/2024 06:20:22 05/09/20 24 05/10/2024 BMP7+ EGFR sodium 138 mmol/ L 134-14 4 Not Available [facility] ([facility]) [address] [place], [address], 05/11/2024 06:20:22 05/09/20 24 05/10/2024 BMP7+ EGFR potassium 4.3 mmol/ L 3.5-5. 2 Not Available [facility] ([facility]) [address] [place], [address], 05/11/2024 06:20:22 05/09/20 24 05/10/2024 BMP7+ EGFR chloride 102 mmol/ L 96-106 Not Available [facility] ([facility]) [address], [place], [address], 05/11/2024 06:20:22 05/09/20 24 05/10/2024 BMP7+ EGFR carbon dioxide, total 23 mmol/ L 20-29 Not Available [facility] ([facility]) [address], [place], [address], 05/11/2024 06:20:22 05/09/2005/10/2024 TSH RFX ON ABNOR MAL TO FREE T4 TSH 2.170 uIU/m L 0.450- 4.500 Not Available [facility] ([facility]) [address], [place], [address], 05/11/2024 06:20:23 05/09/20 24 05/10/2024 UA/M W/RFL X CULTU REPROI NE specific gravity 1.022 1.005- 1.030 Not Available [facility] ([facility]) [address], [place], [address], 05/11/2024 06:20:24 05/09/2005/10/2024 UA/M W/RFL X CULTU REPROI NE pH 5.5 5.0-7. 5 Not Available [facility] ([facility]) [address] [place], [address], 05/11/2024 06:20:24 05/09/2005/10/2024 UA/M W/RFL X CULTU RE, ROUTI NE urine-color YELLOW yellow Not Available [facility] ([facility]) [address] [place], [address], 05/11/2024 06:20:24 05/09/20 05/10/2024 UA/M W/RFL X CULTU RE, ROUTI NE appearance CLEAR clear Not Available [facility] ([facility]) [address] [place], [address], 05/11/2024 06:20:24 05/09/20 24 05/10/2024 UA/M W/RFL X CULTU RE, ROUTI NE WBC esterase NEGATI VE negati ve Not Available [facility] ([facility]) [address] [place], [address], 05/11/2024 06:20:24 05/09/2005/10/2024 UA/M W/RFL X CULTU RE, ROUTI NE protein NEGATI VE negati ve/tra ce Not Available [facility] ([facility]) [address] [place], [address], 05/11/2024 06:20:24 05/09/20 24 05/10/2024 UA/M W/RFL X CULTU RE, ROUTI NE glucose NEGATI VE negati ve Not Available [facility] ([facility]) [address] [place], [address], 05/11/2024 06:20:24 05/09/20 24 05/10/2024 UA/M W/RFL X CULTU RE, ROUTI NE ketones NEGATI VE negati ve Not Available [facility] ([facility]) [address] [place], [address], 05/11/2024 06:20:24 05/09/2005/10/2024 UA/M W/RFL X CULTU RE, ROUTI NE occult blood NEGATI VE negati ve Not Available [facility] ([facility]) [address] [place], [address], 05/11/2024 06:20:24 05/09/20 24 05/10/2024 UA/M W/RFL X CULTU RE, ROUTI NE bilirubin NEGATI VE negati ve Not Available [facility] ([facility]) [address], [place], [address], 05/11/2024 06:20:24 05/09/20 24 05/10/2024 UA/M W/RFL X CULTU RE, ROUTI NE urobilinogen ,semi-qn 0.2 mg/dL 0.2-1. 0 Not Available [facility] ([facility]) [address], [place], [address], 05/11/2024 06:20:24 05/09/20 24 05/10/2024 UA/M W/RFL X CULTU RE, ROUTI NE nitrite, urine NEGATI VE negati ve Not Available [facility] ([facility]) [address], [place], [address], 05/11/2024 06:20:24 05/09/20 24 05/10/2024 UA/M W/RFL X CULTU RE, ROUTI NE microscopic examination COMMEN T Micro scopi c follo ws if indic ated. Not Available [facility] ([facility]) [address], [place], [address], 05/11/2024 06:20:24 05/09/20 24 05/10/2024 UA/M W/RFL X CULTU RE, ROUTI NE microscopic examination SEE BELOW: Micro scopi c was indic ated and was perfo rmed. Not Available [facility] ([facility]) [address], [place], [address], 05/11/2024 06:20:24 05/09/20 24 05/10/2024 UA/M W/RFL X CULTU RE, ROUTI NE urinalysis reflex COMMEN T This speci men will not refle x to a Urine Cultu re. Not Available [facility] ([facility]) [address] [place], [address], 05/11/2024 06:20:24 05/09/20 24 05/10/2024 RPR, RFX QN RPR/C ONFIR M TP RPR NON REACTI VE nonrea ctive Not Available [facility] ([facility]) [address], [place], [address], 05/11/2024 06:20:25 05/09/20 24 05/10/2024 VITAM IN D, 25-HY DROXY vitamin D, 25-hydroxy 21.4 NG/mL 30.0-1 00.0 below low normal Vitam in D defic iency has been defin ed by the Insti tute of Medic ine and an Endoc rine Socie ty pract ice guide line as a level of serum 25-OH vitam in D less than 20 ng/mL (1,2) . The Endoc rine Socie ty went on to furth er defin e vitam in D insuf ficie ncy as a level betwe en 21 and 29 ng/mL (2). 1. IOM (Inst itute of Medic ine). 2009. Dieta ry refer ence intak es for calci um and D. Davion leach [place]: The Natio nal [facility] Press . 2. Nikole barnes MF, Mustapha ivy [place], Macey off-F errar i QURESHI, et al. Evalu ation , treat ment, and preve ntion of vitam in D defic iency : an Endoc rine Socie ty clini ramona pract ice guide line. JCEM. 2010; 96(7) :1911 -30. Not Available [facility] ([facility]) [address], [place], [address], 05/11/2024 06:20:26 05/09/20 24 05/10/2024 HIV-1 /HIV- 2 QUALI TATIV E RNA HIV-1 RNA NON REACTI VE nonrea ctive Not Available [facility] ([facility]) [address], [place], [address], 05/11/2024 06:20:31 05/09/20 24 05/10/2024 HIV-1 /HIV- 2 QUALI TATIV E RNA HIV-2 RNA NON REACTI VE nonrea ctive Not Available [facility] ([facility]) [address], [place], [address], 05/11/2024 06:20:31 05/09/20 24 05/09/2024 gluco se, finge rstic k, blood Blood Glucose: mg/dl 103 Not Available In-Off ice Order Internal Use Only DO Not Attach Compendium DO Not Attach Compendium, Do Not Delete/merge, 05/09/2024 11:16:34 05/09/20 24 05/09/2024 HbA1c (hemo globi n A1c), blood HbA1c 6.8 Not Available In-Office Order Internal Use Only DO Not Attach Compendium DO Not Attach Compendium, Do Not Delete/merge, 05/09/2024 11:16:25 08/08/19 25 08/08/2024 HbA1c (hemo globi n A1c), blood HbA1c 5.3 Not Available In-Office Order Internal Use Only DO Not Attach Compendium DO Not Attach Compendium, Do Not Delete/merge, 08/08/2024 14:35:53 08/08/19 25 08/08/2024 gluco se, finge rstic k, blood Blood Glucose: mg/dl 112 Not Available In-Off ice Order Internal Use Only DO Not Attach Compendium DO Not Attach Compendium, Do Not Delete/merge, 08/08/2024 14:36:06 08/11/19 25 08/11/2024 COMPL ETE BLOOD COUNT AUTO DIFF white blood count 8.9 x10e3 /uL 3.4-10 .8 normal Not Available [facility] (Lab) [address] [place], [address], 08/11/2024 15:21:21 08/11/19 25 08/11/2024 COMPL ETE BLOOD COUNT AUTO DIFF red blood count 4.40 x10e6 /uL 3.77-5 .28 normal Not Available [facility] (Lab) [address], [place], [address], 08/11/2024 15:21:21 08/11/19 25 08/11/2024 COMPL ETE BLOOD COUNT AUTO DIFF hemoglobin 11.9 g/dL 11.1-1 5.9 normal Not Available [facility] (Lab) [address], [place], [address], 08/11/2024 15:21:21 08/11/19 25 08/11/2024 COMPL ETE BLOOD COUNT AUTO DIFF hematocrit 38.3 % 34.0-4 6.6 normal Not Available [facility] (Lab) [address], [place], [address], 08/11/2024 15:21:21 08/11/19 25 08/11/2024 COMPL ETE BLOOD COUNT AUTO DIFF mean corpuscular volume 87 fL 79-97 normal Not Available [facility] (Lab) [address] [place], [address], 08/11/2024 15:21:21 08/11/19 25 08/11/2024 COMPL ETE BLOOD COUNT AUTO DIFF mean corpuscular hemoglobin 27.0 pg 26.6-3 3.0 normal Not Available [facility] (Lab) [address] [facility], [place], [address], 08/11/2024 15:21:21 08/11/19 25 08/11/2024 COMPL ETE BLOOD COUNT AUTO DIFF mean corpuscular HGB conc 31.1 g/dL 31.5-3 5.7 low Not Available [facility] (Lab) [address] [place], [address], 08/11/2024 15:21:21 08/11/19 25 08/11/2024 COMPL ETE BLOOD COUNT AUTO DIFF red cell distribution width 12.2 % 11.5-1 4.5 normal Not Available [facility] (Lab) [address] [place], [address], 08/11/2024 15:21:21 08/11/19 25 08/11/2024 COMPL ETE BLOOD COUNT AUTO DIFF platelet count 258 x10e3 /uL 150-45 0 normal Not Available [facility] (Lab) [address] [place], [address], 08/11/2024 15:21:21 08/11/19 25 08/11/2024 COMPL ETE BLOOD COUNT AUTO DIFF mean platelet volume 10.1 fL 8.9-12 .7 normal Not Available [facility] (Lab) [address] [facility], [place], [address], 08/11/2024 15:21:21 08/11/19 25 08/11/2024 COMPL ETE BLOOD COUNT AUTO DIFF immature granulocytes pct auto 0.5 % not estb. Not Available [facility] (Lab) [address] [facility], [place], [address], 08/11/2024 15:21:21 08/11/19 25 08/11/2024 COMPL ETE BLOOD COUNT AUTO DIFF neutrophils percent auto 57 % not estb. Not Available [facility] (Lab) [address] [facility], [place], [address], 08/11/2024 15:21:21 08/11/19 25 08/11/2024 COMPL ETE BLOOD COUNT AUTO DIFF lymphocytes percent auto 34 % not estb. Not Available [facility] (Lab) [address] [facility], [place], [address], 08/11/2024 15:21:21 08/11/19 25 08/11/2024 COMPL ETE BLOOD COUNT AUTO DIFF monocytes percent auto 5 % not estb. Not Available [facility] (Lab) [address] [facility], [place], [address], 08/11/2024 15:21:21 08/11/19 25 08/11/2024 COMPL ETE BLOOD COUNT AUTO DIFF eosinophils percent auto 4 % not estb. Not Available [facility] (Lab) [address] [facility], [place], [address], 08/11/2024 15:21:21 08/11/19 25 08/11/2024 COMPL ETE BLOOD COUNT AUTO DIFF basophils percent auto 1 % not estb. Not Available [facility] (Lab) [address] [place], [address], 08/11/2024 15:21:21 08/11/19 25 08/11/2024 COMPL ETE BLOOD COUNT AUTO DIFF neutrophils absolute auto 5.1 x10e3 /uL 1.4-7. 0 normal Not Available [facility] (Lab) [address] [place], [address], 08/11/2024 15:21:21 08/11/19 25 08/11/2024 COMPL ETE BLOOD COUNT AUTO DIFF immature granulocytes abs auto 0.0 x10e3 /uL 0.0-0. 1 normal Not Available [facility] (Lab) [address] [facility], [place], [address], 08/11/2024 15:21:21 08/11/19 25 08/11/2024 COMPL ETE BLOOD COUNT AUTO DIFF lymphocytes absolute auto 3.0 x10e3 /uL 0.7-3. 1 normal Not Available [facility] (Lab) [address] [place], [address], 08/11/2024 15:21:21 08/11/19 25 08/11/2024 COMPL ETE BLOOD COUNT AUTO DIFF monocytes absolute auto 0.4 x10e3 /uL 0.1-0. 9 normal Not Available [facility] (Lab) [address] [place], [address], 08/11/2024 15:21:21 08/11/19 25 08/11/2024 COMPL ETE BLOOD COUNT AUTO DIFF eosinophils absolute auto 0.3 x10e3 /uL 0.0-0. 4 normal Not Available [facility] (Lab) [address] [place], [address], 08/11/2024 15:21:21 08/11/19 25 08/11/2024 COMPL ETE BLOOD COUNT AUTO DIFF basophils absolute auto 0.1 x10e3 /uL 0.0-0. 2 normal Not Available [facility] (Lab) [address], [place], [address], 08/11/2024 15:21:21 08/11/19 25 08/11/2024 COMPL ETE BLOOD COUNT AUTO DIFF nucleated red blood cells auto 0 % 0-0 normal Not Available [facility] (Lab) [address], [place], [address], 08/11/2024 15:21:21 08/23/19 25 08/22/2024 gluco se, finge rstic k, blood Blood Glucose: mg/dl 109 Not Available In-Off ice Order Internal Use Only DO Not Attach Compendium DO Not Attach Compendium, Do Not Delete/merge, [id number] 08/22/2024 11:44:35 08/23/19 25 08/22/2024 HbA1c (hemo globi n A1c), blood HbA1c 5.3 Not Available In-Office Order Internal Use Only DO Not Attach Compendium DO Not Attach Compendium, Do Not Delete/merge, [id number] 08/22/2024 11:44:25 04/21/20 24 02/18/2024 leroy metry , [facility] hodil ation No observ ation record ed. ajamous Not Available 2023 12:06:58 Result Notes None recorded. Problems Name Problem SNOMED Code Status Onset Date Resolution Date Notes Provider Name and Address Organization Details Recorded Time Diabetes mellitus [id number] Active 020 Noemy Snell MA null, [place] - [facility] 0 08:50:50 Uterine leiomyoma 32621767 Active 021 Jessica Cabello null, [place] - [facility] 1 12:33:33 Asthma 063940524 Active Logan Ramirez MD Attn: Ayaan george,[address] [facility], [place], [address] , [place] - [facility] 6 17:48:49 Problem Notes None recorded. Procedures Surgical History Date Name Laterality Status Provider Name and Address Organization Details Recorded Time 1 Date of Last Pap Smear completed Emily Li [place] [facility] 07/11/2021 15:50:20 1 Endometrial Biopsy completed [facility] 03/27/2021 12:32:23 Date of Last Mammogram completed Emily Li MA [facility] 07/11/2021 15:49:14 ligation of fallopian tube completed [place] [facility] 02/27/2021 14:55:52 Imaging Results Imaging Date Name Status LastModified by Organization Details LastModified Time 02/18/2024 spirometry, pre and post bronchodilation completed ajamous Information not available 04/24/2024 12:06:58 Procedure Notes None recorded. Medical Equipment None Reported. Allergies Allergen ID Allergen Name Allergen Category Reaction Reaction Severity Criticality Documentation Date Start Date Code Code System Note Provider Name and Address Organization Details Recorded Time 18400220 metformin medicatio n abdominal pain moderate high 08/08/20242019 6809 RxNorm Not Available Not Available Not Available Medications Name Sig Start Date Stop Date Status Note LastModified by Organization Details LastModified Time Prescripti on - New 07/11 completed Not Available Not Available Not Available Prescripti on - Prior Authorizat ion Request active Not Available Not Available Not Available cyclobenza jason 10 mg tablet 07/11 completed Not Available Not Available Not Available amoxicilli n 500 mg capsule 06/22 completed Not Available Not Available Not Available medroxypro gesterone 10 mg tablet 08/06 completed Not Available Not Available Not Available fluconazol e 100 mg tablet 07/11 completed Not Available Not Available Not Available metformin 500 mg tablet Take 1 tablet twice a day by oral route for 90 days. 05/30 completed GI upset Not Available Not Available Not Available Qvar 80 mcg/actuat ion Metered Aerosol oral inhaler INHALE 2 PUFFS BY MOUTH TWICE DAILY 06/22 completed Not Available Not Available Not Available clonidine HCl 0.1 mg tablet 07/11 completed Not Available Not Available Not Available prednisone 10 mg tablet TAKE 4 TABLETS BY MOUTH DAILY FOR 5 DAYS 05/09 completed Not Available Not Available Not Available cefuroxime axetil 250 mg tablet 02/14 completed Not Available Not Available Not Available nicotine 14 mg/24 hr daily transderma l patch PLACE 1 PATCH ON SKIN DAILY 08/06 completed Not Available Not Available Not Available ipratropiu m 0.5 mg-albuter ol 3 mg (2.5 mg base)/3 mL nebulizati on soln USE 3 ML VIA NEBULIZER FOUR TIMES DAILY DIRECTED active Not Available Not Available No t Available albuterol sulfate 2.5 mg/3 mL (0.083 %) solution for nebulizati on USE 3 ML VIA NEBULIZER THREE TIMES DAILY DIRECTED active Not Available Not Available No t Available cetirizine 10 mg tablet TAKE 1 TABLET BY MOUTH DAILY NEEDED FOR ALLERGY SYMPTOMS 04/05 completed Not Available Not Available Not Available azithromyc in 250 mg tablet TAKE 2 TABLETS BY MOUTH FOR 1 DAY THEN TAKE 1 TABLET BY MOUTH DAILY 08/22 completed Not Available Not Available Not Available glyburide 5 mg tablet TAKE 1 TABLET BY MOUTH DAILY DIRECTED active Not Available Not Available No t Available ibuprofen 800 mg tablet 07/11 completed Not Available Not Available Not Available Lidocaine Viscous 2 % mucosal solution 07/11 completed Not Available Not Available Not Available fluconazol e 150 mg tablet TAKE 1 TABLET BY MOUTH DIRECTED 07/11 completed Not Available Not Available Not Available albuterol sulfate 1.25 mg/3 mL solution for nebulizati on USE 1 VIAL VIA NEBULIZER FOUR TIMES DAILY NEEDED FOR SHORTNESS OF BREATH OR WHEEZING 07/31 completed Not Available Not Available Not Available hydrocodon e 5 mg-acetami nophen 325 mg tablet 04/05 completed Not Available Not Available Not Available phenazopyr idine 200 mg tablet 07/11 completed Not Available Not Available Not Available lisinopril 20 mg tablet 05/27 completed Not Available Not Available Not Available ondansetro n HCl 4 mg tablet 08/06 completed Not Available Not Available Not Available prednisone 20 mg tablet TAKE 2 TABLETS BY MOUTH DAILY FOR 5 DAYS 08/22 completed Not Available Not Available Not Available Tubersol 5 tub. unit/0.1 mL intraderma l injection solution Inject 0.1 mL by intraderm al route. 07/11 completed Not Available Not Available Not Available Alcohol Pads Apply 1 pad twice a day by topical route as directed for 90 days. 2023 active Not Available Not Available Not Avai lable prednisone 5 mg tablet 05/09 completed Not Available Not Available Not Available metronidaz ole 500 mg tablet TAKE 1 TABLET BY MOUTH TWICE DAILY FOR 5 DAYS 07/11 completed Not Available Not Available Not Available amlodipine 5 mg tablet 06/22 completed Not Available Not Available Not Available prednisone 5 mg/5 mL oral solution TAKE 5 ML BY MOUTH TWICE DAILY FOR 5 DAYS 05/09 completed Not Available Not Available Not Available acetaminop hen 500 mg tablet 07/15 completed Not Available Not Available Not Available amoxicilli n 875 mg tablet TAKE 1 TABLET BY MOUTH TWICE DAILY FOR 7 DAYS 08/08 completed Not Available Not Available Not Available amlodipine 10 mg tablet TAKE 1 TABLET BY MOUTH DAILY 08/08 completed Not Available Not Available Not Available doxycyclin e monohydrat e 100 mg capsule TAKE 1 CAPSULE BY MOUTH TWICE DAILY FOR 7 DAYS 04/05 completed Not Available Not Available Not Available cephalexin 500 mg capsule 06/18 completed Not Available Not Available Not Available pantoprazo le 40 mg tablet,del ayed release TAKE 1 TABLET BY MOUTH EVERY DAY WITH MEALS 07/11 completed Not Available Not Available Not Available Guaifenesi n AC 10 mg-100 mg/5 mL oral liquid 06/18 completed Not Available Not Available Not Available prednisone 50 mg tablet TAKE 1 TABLET BY MOUTH DAILY FOR 5 DAYS 05/09 completed Not Available Not Available Not Available losartan 25 mg tablet Take 1 tablet every day by oral route for 90 days. 08/22 completed Not Available Not Available Not Available nicotine 21 mg/24 hr daily transderma l patch 02/27 completed Not Available Not Available Not Available hydrochlor othiazide 12.5 mg capsule TAKE 1 CAPSULE BY MOUTH DAILY 08/08 completed Not Available Not Available Not Available docusate sodium 100 mg capsule TAKE ONE CAPSULE BY MOUTH TWICE DAILY 07/11 completed Not Available Not Available Not Available montelukas t 10 mg tablet TAKE 1 TABLET BY MOUTH EVERY DAY DIRECTED active Not Available Not Available No t Available norethindr one acetate 5 mg tablet 07/15 completed Not Available Not Available Not Available ergocalcif isabel (vitamin D2) 1,250 mcg (50,000 unit) capsule Take 1 capsule every week by oral route as directed. active Not Available Not Available No t Available ibuprofen 600 mg tablet 08/06 completed Not Available Not Available Not Available polyethyle ne glycol 3350 17 gram/dose oral powder 08/06 completed Not Available Not Available Not Available levofloxac in 500 mg tablet 06/18 completed Not Available Not Available Not Available Q-Tussin 100 mg/5 mL oral liquid 07/11 completed Not Available Not Available Not Available methylpred nisolone 4 mg tablets in a dose pack FOLLOW PACKAGE DIRECTION S 04/05 completed Not Available Not Available Not Available albuterol sulfate HFA 90 mcg/actuat ion aerosol inhaler INHALE 2 PUFFS BY MOUTH FOUR TIMES DAILY NEEDED FOR SHORTNESS OF BREATH OR WHEEZING active Not Available Not Available No t Available ipratropiu m bromide 42 mcg (0.06 %) nasal spray 07/11 completed Not Available Not Available Not Available losartan 50 mg-hydroch lorothiazi de 12.5 mg tablet TAKE 1 TABLET BY MOUTH EVERY DAY IN THE MORNING active Not Available Not Available No t Available doxycyclin e hyclate 100 mg tablet TAKE 1 TABLET BY MOUTH TWICE DAILY FOR 10 DAYS DIRECTED 07/11 completed Not Available Not Available Not Available loratadine 10 mg tablet TAKE 1 TABLET DAILY 04/05 completed Not Available Not Available Not Available ipratropiu m bromide 0.02 % solution for inhalation 07/11 completed Not Available Not Available Not Available naproxen 500 mg tablet TAKE 1 TABLET BY MOUTH EVERY 12 HOURS NEEDED FOR PAIN. TAKE WITH FOOD OR MILK. 07/11 completed Not Available Not Available Not Available amoxicilli n 875 mg-potassi um clavulanat e 125 mg tablet TAKE 1 TABLET BY MOUTH EVERY 12 HOURS 03/22 completed Not Available Not Available Not Available nabumetone 500 mg tablet 07/11 completed Not Available Not Available Not Available amoxicilli n 500 mg-potassi um clavulanat e 125 mg tablet 06/22 completed Not Available Not Available Not Available oxycodone 5 mg tablet 08/06 completed Not Available Not Available Not Available neomycin-p olymyxin-h ydrocort 3.5 mg-10,000 unit/mL-1 % ear drops,susp 06/18 completed Not Available Not Available Not Available Blood Glucose Test strips Take 1 strip twice a day by miscell. route as directed for 90 days. 2023 active Not Available Not Available Not Avai lable azithromyc in 500 mg tablet TAKE 1 TABLET BY MOUTH ONCE DAILY FOR 3 DAYS 02/27 completed Not Available Not Available Not Available rosuvastat in 10 mg tablet Take 1 tablet every day by oral route at bedtime for 90 days. 2023 active Not Available Not Available Not Avai lable tiotropium bromide 18 mcg capsule with inhalation device INHALE THE CONTENTS OF 1 CAPSULE VIA INHALATIO N DEVICE DAILY active Not Available Not Available No t Available nitrofuran toin monohydrat e/macrocry stals 100 mg capsule 02/27 completed Not Available Not Available Not Available Flovent HFA 220 mcg/actuat ion aerosol inhaler INHALE 1 PUFF BY MOUTH TWICE DAILY 10/31 completed Not Available Not Available Not Available Atrovent HFA 17 mcg/actuat ion aerosol inhaler INHALE 1 PUFF BY MOUTH EVERY 6 HOURS NEEDED FOR WHEEZING 04/05 completed Not Available Not Available Not Available losartan 100 mg-hydroch lorothiazi de 12.5 mg tablet Take 1 tablet every day by oral route in the morning for 90 days. 2024 active Not Available Not Available Not Avai lable Symbicort 160 mcg-4.5 mcg/actuat ion HFA aerosol inhaler INHALE 2 PUFFS BY MOUTH TWICE DAILY NEEDED 2024 active Not Available Not Available Not Avai lable FeroSul 325 mg (65 mg iron) tablet TAKE 1 TABLET BY MOUTH TWICE DAILY 04/05 completed Not Available Not Available Not Available Vios Aerosol Delivery System 07/11 completed Not Available Not Available Not Available Jassi Angulo [facility] spacer 07/11 completed Not Available Not Available Not Available Spiriva Respimat 2.5 mcg/actuat ion solution for inhalation Inhale 2 puffs every day by inhalatio n route for 30 days. 2024 active Not Available Not Available Not Avai lable Incruse Ellipta 62.5 mcg/actuat ion powder for inhalation Inhale 1 puff every day by inhalatio n route for 30 days. 07/11 completed Not Available Not Available Not Available Flonase Allergy Relief 50 mcg/actuat ion nasal spray,susp ension [place] 1 spray twice a day by intranasa l route for 30 days. 2024 active Not Available Not Available Not Avai lable Spiriva Respimat 1.25 mcg/actuat ion solution for inhalation Inhale 2 puffs every day by inhalatio n route for 30 days. 06/06 completed Not Available Not Available Not Available fluticason e 113 mcg-salmet isabel 14 mcg/actuat ion breath activated powdr INHALE 1 PUFF BY MOUTH TWICE DAILY DIRECTED 06/06 completed Not Available Not Available Not Available fluticason e 232 mcg-salmet isabel 14 mcg/actuat ion breath activated powdr 06/26 completed Not Available Not Available Not Available Qvar RediHaler 80 mcg/actuat ion HFA breath activated aerosol INHALE 2 PUFFS BY MOUTH TWICE DAILY 07/11 completed Not Available Not Available Not Available Ozempic 0.25 mg or 0.5 mg (2 mg/1.5 mL) subcutaneo us pen injector Inject 0.25 mg every week by subcutane ous route for 28 days. 2024 active Not Available Not Available Not Avai rodrigole OneTouch Ultra2 Meter USE TO MONITOR BLOOD SUGAR 2024 active Not Available Not Available Not Avai lable OneTouch Delica Plus Lancet 33 gauge active Not Available Not Available Not Available OneTouch Delica Plus Lancet 30 gauge USE DIRECTED 07/11 completed Not Available Not Available Not Available Kenalog-80 80 mg/mL suspension for injection Take 80 mg by injection route for 1 day. 07/11 completed Not Available Not Available Not Available Dupixent 300 mg/2 mL subcutaneo us pen injector Inject 2 mL every 2 weeks by subcutane ous route for 28 days. 2024 active Not Available Not Available Not Avai lable Paxlovid 300 mg (150 mg x 2)-100 mg tablets in a dose pack 05/08 completed Not Available Not Available Not Available Ozempic 0.25 mg or 0.5 mg (2 mg/3 mL) subcutaneo us pen injector Inject by subcutane ous route for 28 days. active Not Available Not Available No t Available Vitals Date Recorded Body height Oxygen saturation Oxygen saturation in Arterial blood by Pulse oximetry Pain severity - 0-10 verbal numeric rating [Score] - Reported Heart rate Respiratory rate Body temperature Body mass index (BMI) Body weight Systolic blood pressure Diastolic blood pressure Provider Name and Address Organization Details Last Updated DateTime 4 168.91 cm 95 % 95 % 0 86 /min 18 /min 97.6 [degF] 57.6 kg/m2 962259. 44 g 163 mm[Hg] 89 mm[Hg] Carrie Ramirez MA [facility] 4 09:59:46 Date Recorded Body height Body mass index (BMI) Body weight Body temperature Oxygen saturation Oxygen saturation in Arterial blood by Pulse oximetry Heart rate Respiratory rate Systolic blood pressure Diastolic blood pressure Provider Name and Address Organization Details Last Updated DateTime 4 168.91 cm 56.7 kg/m2 927054. 98 g 97.8 [degF] 98 % 98 % 84 /min 20 /min 122 mm[Hg] 76 mm[Hg] Jennie Guzmán MA [facility] 4 11:09:03 Date Recorded Body height Body mass index (BMI) Body weight Body temperature Respiratory rate Pain severity - 0-10 verbal numeric rating [Score] - Reported Oxygen saturation Oxygen saturation in Arterial blood by Pulse oximetry Heart rate Systolic blood pressure Diastolic blood pressure Provider Name and Address Organization Details Last Updated DateTime 5 168.91 cm 55.8 kg/m2 409666. 92 g 97 [degF] 18 /min 0 96 % 96 % 82 /min 162 mm[Hg] 100 mm[Hg] Emily Stewart LPN [facility] 5 11:41:14 Date Recorded Body height Body mass index (BMI) Body weight Oxygen saturation Oxygen saturation in Arterial blood by Pulse oximetry Heart rate Respiratory rate Body temperature Systolic blood pressure Diastolic blood pressure Provider Name and Address Organization Details Last Updated DateTime 5 168.91 cm 56.5 kg/m2 667346. 09 g 96 % 96 % 88 /min 20 /min 98.4 [degF] 160 mm[Hg] 100 mm[Hg] Jennie RamirezAMY [facility] 5 14:29:39 Date Recorded Body height Body mass index (BMI) Body weight Oxygen saturation Oxygen saturation in Arterial blood by Pulse oximetry Heart rate Respiratory rate Body temperature Pain severity - 0-10 verbal numeric rating [Score] - Reported Systolic blood pressure Diastolic blood pressure Provider Name and Address Organization Details Last Updated DateTime 5 168.91 cm 57.3 kg/m2 763938. 41 g 95 % 95 % 82 /min 20 /min 98.2 [degF] 0 168 mm[Hg] 104 mm[Hg] Jennie Ramirez AMY [facility] 5 11:40:33 Social History Question Answer Notes LastModified by El Corralizat ion Details LastModified Time Tobacco Smoking Status Former Smoker quit august 2021 Diane Brock LPN [facility], [facility] 09/18/2021 10:03:17 Do You Have An Advance Directive? Yes Information not available 07/11/2021 What Is Your Level Of Alcohol Consumption? Occasional Information not available 07/11/2021 Are You Blind Or Do You Have Difficulty Seeing? No Information not available 07/11/2021 What Is Your Level Of Caffeine Consumption? Occasional Information not available 07/11/2021 In The 14 Days Before Symptom Onset, Have You Had Close Contact With A Laboratory-confir med COVID-19 While That Case Was Ill? No Information not available 07/11/2021 In The 14 Days Before Symptom Onset, Have You Had Close Contact With A Person Who Is Under Investigation For COVID-19 While That Person Was Ill? No Information not available 07/11/2021 Have You Been To An Area Known To Be High Risk For COVID-19? No Information not available 07/11/2021 Are You Currently Employed? Yes Information not available 02/27/2021 Are You Deaf Or Do You Have Serious Difficulty Hearing? No Information not available 07/11/2021 What Type Of Diet Are You Following? DIABETIC [email or web address] Information not available 01/10/2024 What Is The Highest Grade Or Level Of School You Have Completed Or The Highest Degree You Have Received? [id number] Information not available 02/27/2021 Have There Been Any Changes To Your Family Or Social Situation? No Information no t available 02/27/2021 Are There Any Guns Present In Your Home? No Information not available 07/11/2021 Do You Have A Medical Power Of Data Analysis Manager? No [email or web address] Information not available 09/18/2021 What Was The Date Of Your Most Recent Tobacco Screening? 08/22/2024 Information not available 08/22/2024 How Many Children Do You Have? 6 Information not available 02/27/2021 What Is Your Current Pack Years? 10packyears Information not available 02/27/2021 Do You Have Any Pets? No Information not available 02/27/2021 Do You Use Protection During Sex? Usually Information not available 02/27/2021 What Is Your Relationship Status? Information not available 02/27/2021 Do You Use Your Seat Belt Or Car Seat Routinely? Yes Information not available 02/27/2021 Are You Sexually Active? Yes Information not available 02/27/2021 Do You Have Smoke And Carbon Monoxide Detectors In Your Home? Yes Information not available 02/27/2021 At What Age Did You Start Smoking Tobacco? 26 Information not available 07/11/2021 Are You Passively Exposed To Smoke? Yes Information no t available 07/11/2021 How Much Tobacco Do You Smoke? 0.5 PPD Information not available 02/27/2021 Do You Feel Stressed (tense, Restless, Nervous, Or Anxious, Or Unable To Sleep At Night)? [id number] Information not available 07/11/2021 Do You Use Any Illicit Or Recreational Drugs? No Information not available 07/11/2021 Do You Use Sunscreen Routinely? No Information not available 02/27/2021 Has Tobacco Cessation Counseling Been Provided? Yes Information not available 08/08/2024 On What Date Was Tobacco Cessation Counseling Provided? 08/22/2024 Information not available 08/22/2024 How Many Years Have You Smoked Tobacco? 15 Information not available 07/11/2021 Do You Or Have You Ever Used Any Other Forms Of Tobacco Or Nicotine? No Information not available 07/11/2021 Sex: Female Functional Status Question Answer Note LastModified by Organization D etails LastModified Time Are you able to care for yourself? Yes Information n ot available 07/11/2021 What is your exercise level? None Information not available 07/11/2021 Mental Status None recorded. Family History Relationship Description Onset Age of this Age Resolved Age Notes LastModified by Organization Details LastModified Time Unspecified Relation Asthma [email or web address] Not available 021 14:28:10 Unspecified Relation Diabetes mellitus [email or web address] Not available 2020 14:28:18 Medical History Condition Response Coronary Artery Disease N Other N Atrial Fibrillation N High Blood Pressure Y Depression N COPD N Blood Clots N Anxiety Disorder N Muscle, Joint, or Bone Problems N Acid Reflux (GERD) N Cancer N Stroke N ADHD N High Cholesterol N Liver Disease N Schizophrenia N Headaches N Thyroid Problems N Kidney or Bladder Problems N GI Problems N Eating Disorder N Skin Problems N Anemia N Heart Attack (TN) N Diabetes Y Seizures/Epilepsy N Asthma Y Allergies N Substance Abuse N Hepatitis N Heart Failure N Osteoporosis N Gynecological History Statement/Question Response Abnormal Pap N Date of Last Mammogram 03/13/2021 Flow Heavy Date of LMP 06/17/2021 On BCP's at Conception? N Duration of Flow (days) 7 Most Recent Mammogram Age at Menarche 10 Current Control Method Tubal Ligat ion Frequency of Cycle (Q days) 27 Sexually Active? Y Menses Monthly Y Date of Last Pap Smear 04/10/2021 LMP Approximate Obstetrics History GPAL:G 6 P 5 1 0 6 Type Value Multiple Births 0 Full Term 5 Induced 0 Spontaneous 0 Premature 1 Living 6 Ectopics 0 Total 6 Immunizations Vaccine Type Date Status Note Provider Nam e and Address Organization Details Recorded Time Influenza, split virus, quadrivalent, PF 03/29/2018 completed Not Available [facility] 0 02:49:14 Hep B, adult 03/29/2018 completed Not Available [facility] 07/01/2019 02:34:28 Tdap 03/29/2018 completed Not Available [facility] 07/01/2019 02:39:20 Past Encounters Encounter ID Performer Location Encounter Start Date Encounter Closed Date Diagnosis/Indication Diagnosis SNOMED-CT Code Diagnosis ICD10 Code Diagnosis Note [id number] Arleen Howell [facility] (Adult/Fa m Med) [address] [place] [address] 09/26/2015 16:04:19 09/26/2015 17:54:05 Asthma 054620495 J45.053 [id number] Halima Juarez [facility] (Adult/Fa m Med) [address] [place] [phone] 08/21/2016 15:02:23 08/28/2016 11:05:10 Asthma 789939150 J45.204 [id number] Shivam Domínguez [facility] (DRUM OPERATOR) [address] [place] [address] 01/14/2017 11:13:05 01/14/2017 14:44:45 Menorrhagia 648251700 N92.0 [id number] Shivam Domínguez [facility] (DRUM OPERATOR) [address] [place] [address] 02/18/2017 13:57:55 02/18/2017 16:31:15 Irregular periods 99282856 N92.6 [id number] Logan Ramirez MD [facility] (Adult/Fa m Med) [address] [place] [address] 04/28/2017 15:19:44 05/17/2017 09:36:26 Asthma 910574448 J45.332 [id number] Logan Ramirez MD [facility] (Adult/Fa m Med) [address] [place] [address] 11/16/2017 15:04:50 11/18/2017 13:27:27 Asthma 832635251 J45.284 [id number] Logan Ramirez MD [facility] (Adult/Fa m Med) [address] [place] [phone] 03/29/2018 14:17:53 04/01/2018 10:41:03 Screening for disorder 632061563 Z13.9 [facility] [id number] E03.9 [id number] Logan Ramirez MD [facility] (Adult/Fa m Med) [address] [place] [id number] 05/27/2018 11:56:31 05/27/2018 14:22:43 Asthma 070057137 J45.909 Morbid obesity 218927841 E66.01 [id number] Logan Ramirez MD [facility] (Adult/Fa m Med) [address] [place] [address] 06/22/2019 10:59:37 06/22/2019 13:28:52 Asthma 731381087 J45.909 Bronchitis 84522323 J40 Moderate p ersistent asthma 538315693 J45.40 Nicotine dependence 5629 4008 F17.019 [id number] Kodak Espinoza MA [facility] (Adult/Fa m Med) [address] [place] [address] 09/22/2019 11:05:29 09/22/2019 14:06:51 Upper respiratory infection 30578020 J06.9 Asthma 953443698 J45.90 9 Morbid obesity 304972180 E66.01 [id number] Joe Edwards MD [facility] [address] [place] [phone] 02/05/2020 10:20:50 02/05/2020 15:34:27 Moderate persistent asthma 399478276 J45.40 Her asthma is not under control. She will continue with Symbicort 160/4.5, 2 puffs BID, Albuterol as needed. I will add Spiriva respimat and check PFTs, 6MWT, CBC, IgE. Morbid obesity 648151912 E66.01 She's working on weight reduction Obstructiv e sleep apnea syndrome 70271532 G47.33 I will start the patient on autoCPAP Nicotine dependence 5629 4008 F17.200 COunseled to quit for 5 minutes, 10PYH Allergic rhinitis 244012 04 J30.9 I will continue Singulair. I will add Flonase. Acute otitis media 03510 03 H66.90 Patient has acute otitis media [id number] Joe Edwards MD [facility] [address] [place] [address] 02/15/2020 12:07:36 02/16/2020 17:21:43 Dyspnea on exertion 05814191 R06.09 Multifacto rial Moderate p ersistent asthma 882428106 J45.40 Her asthma is not under control. She will continue with Symbicort 160/4.5, 2 puffs BID, Albuterol as needed. I will add Incruse ellipta (Spiriva respimat is not covered) and check PFTs, 6MWT( patient has not done) Morbid obesity 859067787 E66.01 She's working on weight reduction Obstructiv e sleep apnea syndrome 13726524 G47.33 I will start the patient on autoCPAP( was not done) Allergic rhinitis 446529 04 J30.9 I will continue Singulair. I will add Flonase. Nicotine dependence 5629 4008 F17.200 COunseled to quit for 5 minutes, 10PYH [id number] Joe Edwards MD [facility] [address] [place] [address] 06/06/2020 10:55:32 06/06/2020 13:03:44 Moderate persistent asthma 197912223 J45.40 Her asthma is not under control. She will continue with Symbicort 160/4.5, 2 puffs BID, Albuterol as needed. I will add Spiriva handihaler (Spiriva respimat and Incruse ellipta are not covered) FEV1 48%, FVC 48%, FEV1/FVC 88%, BD-, TLC 88%, DLCO 53% (2020) Morbid obesity 413583671 E66.01 She's working on weight reduction, ERV 16% Nicotine dependence 5629 4008 F17.200 COunseled to quit for 5 minutes, 10PYH Obstructiv e sleep apnea syndrome 85013768 G47.33 I will start the patient on autoCPAP( has not started) Allergic rhinitis 587820 04 J30.9 I will continue Singulair and Flonase. Fatigue 29590537 R53.83 Multifacto rial [id number] Andre Diaz MD [facility] [address] [place] [address] 06/18/2020 14:21:24 06/19/2020 12:39:50 Myopia 61777584 H52.13 Type 2 judah betes mellitus without complication 507258532 E11.9 [id number] Logan Ramirez MD [facility] (Adult[facility] m Med) [address] [place] [address] 07/17/2020 10:55:36 08/06/2020 03:47:21 Asthma 442845786 J45.909 Diabetes mellitus 708722 09 E11.9 [id number] Joe Edwards MD [facility] [address] [place] [address] 10/31/2020 10:14:15 10/31/2020 16:40:22 Moderate persistent asthma 909900950 J45.40 Her asthma is not under control. She will continue with Symbicort 160/4.5, 2 puffs BID, Albuterol as needed. I will add Spiriva handihaler (Spiriva respimat and Incruse ellipta are not covered) FEV1 48%, FVC 48%, FEV1/FVC 88%, BD-, TLC 88%, DLCO 53% (2019) Obstructiv e sleep apnea syndrome 84834426 G47.33 I will start the patient on autoCPAP( has not started) Morbid obesity 535978577 E66.01 She's working on weight reduction, ERV 16% Nicotine dependence 5629 4008 F17.200 10PYH, quit smoking 2020 Allergic rhinitis 524167 04 J30.9 I will continue Singulair and Flonase. Insomnia 709881099 G47.0 0 Advised about sleep hygiene and possibly taking Benadryl. Fatigue 42664710 R53.83 Multifacto rial [id number] Joe Edwards MD [facility] [address] [place] [address] 11/28/2020 10:30:35 11/29/2020 14:02:22 Moderate persistent asthma 678275169 J45.40 Her asthma is not under control. She will continue with Symbicort 160/4.5, 2 puffs BID, Albuterol as needed. I will add Spiriva handihaler (Spiriva respimat and Incruse ellipta are not covered) FEV1 48%, FVC 48%, FEV1/FVC 88%, BD-, TLC 88%, DLCO 53% (2020) Obstructiv e sleep apnea syndrome 27322213 G47.33 I will start the patient on autoCPAP( has not started) Morbid obesity 054480517 E66.01 She's working on weight reduction, ERV 16% Nicotine dependence 5629 4008 F17.200 10PYH, quit smoking 2020 Allergic rhinitis 589102 04 J30.9 I will continue Singulair and Flonase. Insomnia 179038620 G47.0 0 Advised about sleep hygiene and possibly taking Benadryl. Fatigue 80808461 R53.83 Multifacto rial [id number] [address] [address] 02/27/2021 13:52:11 02/27/2021 15:47:50 Screening for malignant neoplasm of breast 626545078 Z12.39 order MMG Abnormal u terine bleeding 8852476171 9100 N93.9 -not dizzy or light headed with ambulation -check CBC-schedu led for EMB-start iron/colac e Cigarette smoker 4231660 7 F17.210 advised to quitreport s having hallucinat ions with the nicotine patches. Morbid obesity 012545390 E66.01 -Reports losing 79 lbs since November 2019-Repor ts decreasing sweets and carbs from diet.-cont inue dietary changes Pelvic mass 65888305 R19 .00 2017 US with 2 cm right adnexall mass/possi ble dermoid.-o rder pelvic US Increased blood pressure 26093446 R03.0 -patient previously prescribe amlodipine by primary care doctor-sybil clark reports that she does not have high blood pressure and is not taking the medication -recommend starting BP medication and following with primary care. [id number] [address] [address] 03/27/2021 11:43:25 03/27/2021 12:37:10 Abnormal uterine bleeding 6185884344 9100 N93.9 -reports compliance with iron/colac e-US with multiple uterine fibroids-E MB today-F/U in 2 weeks Cyst of ovary 08275807 N 83.209 -Right ovarian mass appears consisiten t with dermoid-CT with contrast jose green [id number] [facility] [address] [place] [address] 04/10/2021 10:41:08 04/10/2021 13:52:23 Chronic endometritis 30006392 N71.1 thick white discharge on pelvic exam. Probable yeast Abnormal u terine bleeding 7113941923 9100 N93.9 -reports compliance with iron/colac e-enlarged uterus (14cm)-US with multiple uterine fibroids-E MB with chronic endometrit is-Has MRI scheduled for Apr 16-referral to [facility] Pelvic mass 95442417 R19 .00 2016 US with 2 cm right adnexal mass/possi ble dermoid.20 21 US with increased size of right adnexal mass 4.4/probab le dermoidCA1 25 and CEA orderedrec mei pierce for MRI [id number] Joe Edwards MD [facility] [address] [place] [address] 06/26/2021 09:55:42 07/07/2021 13:16:57 Moderate persistent asthma 371099232 J45.40 Her asthma is not under control. She will continue with Symbicort 160/4.5, 2 puffs BID, Albuterol as needed. I will add Spiriva handihaler (Spiriva respimat and Incruse ellipta are not covered) FEV1 48%, FVC 48%, FEV1/FVC 88%, BD-, TLC 88%, DLCO 53% (2019) Morbid obesity 612041947 E66.01 She's working on weight reduction, ERV 16% Obstructiv e sleep apnea syndrome 37543013 G47.33 I will start the patient on autoCPAP( has not started) Allergic rhinitis 232212 04 J30.9 I will continue Singulair and Flonase. Nicotine dependence 5629 4008 F17.200 10PYH, quit smoking 2020 Insomnia 496563974 G47.0 0 Advised about sleep hygiene and possibly taking Benadryl. Fatigue 30695769 R53.83 Multifacto rial [id number] JOSI PATEL NP [address] [address] 07/11/2021 15:12:50 07/12/2021 09:52:29 Type 2 diabetes mellitus 50932988 E11.9 Essential hypertension 60054140 I10 Morbid obesity 294742640 E66.[id number] Jessica [address] [address] 07/14/2021 15:52:33 07/14/2021 16:25:33 Abnormal uterine bleeding 4749470406 9100 N93.9 -seen in [facility] by Dr. Patty Barnes-wants to discuss surgical options. Patient referred back to Dr. Barnes.-Obesi ty-enlarge d uterus (14cm)-US with multiple uterine fibroids-E MB with chronic endometrit is-Has MRI done Apr 16 Pelvic mass 83981416 R19 .00 2016 US with 2 cm right adnexal mass/possi ble dermoid.20 21 US with increased size of right adnexal mass 4.4/probab le dermoidCA1 25 and CEA nml [id number] Joe Edwards MD [facility] [address] [place] [address] 09/18/2021 09:54:32 09/18/2021 15:17:32 Obstructive sleep apnea syndrome 06982318 G47.33 patient needs new home sleep study Moderate p ersistent asthma 681080926 J45.40 Her asthma is not under control. She will continue with Symbicort 160/4.5, 2 puffs BID, Albuterol as needed. I will add Spiriva handihaler (Spiriva respimat and Incruse ellipta are not covered) FEV1 48%, FVC 48%, FEV1/FVC 88%, BD-, TLC 88%, DLCO 53% (2019) Morbid obesity 868128168 E66.01 She's working on weight reduction, ERV 16% Nicotine dependence 5629 4008 F17.200 10PYH, quit smoking 2020 Allergic rhinitis 796247 04 J30.9 I will continue Singulair and Flonase. Insomnia 756025875 G47.0 0 Advised about sleep hygiene and possibly taking Benadryl. Fatigue 55350604 R53.83 Multifacto rial Pre-surger y evaluation 521824606 Z01.818 Patient is slightly above average for grover surgical complicati on 2-5%, BDs, BIPAP after surgery, IS, Ambulation , DVT and stress ulcer prophylaxi s are needed. [id number] JOSI PATEL, [address] [address] 10/31/2021 11:16:31 11/03/2021 14:32:23 Essential hypertension 61849021 I10 losartan increased to 100mg Adult heal th examination 276742824 Z00.00 medical clearance pending lab results Morbid obesity 594099007 E66.01 Body mass index 40+ - severely obese 159523050 Z68.43 Diabetes mellitus 389789 09 E11.9 Type 2 judah betes mellitus 27388187 E11.9 Moderate p ersistent asthma 001165509 J45.40 pt is being followed by pulmonolog y [id number] Joe Edwards MD [facility] [address] [place] [address] 03/09/2022 11:03:42 03/09/2022 12:28:33 Obstructive sleep apnea syndrome 00474654 G47.33 Repeated sleep stdy showed AHI 11/hour, will order auto CPAP Moderate p ersistent asthma 300037716 J45.40 Her asthma is not under control. She will continue with Symbicort 160/4.5, 2 puffs BID, Albuterol as needed. I will add Spiriva handihaler (Spiriva respimat and Incruse ellipta are not covered) FEV1 48%, FVC 48%, FEV1/FVC 88%, BD-, TLC 88%, DLCO 53% (2019), repeated PFTs showed FEV1 74%, FVC 87%, FEV1/FVC 70%, TLC 80%, DLCO 88%, FEV25/75% 46%,BD-() Morbid obesity 128625400 E66.01 She's working on weight reduction, ERV 16% Nicotine dependence 5629 4008 F17.200 10PYH, quit smoking 2020 Allergic rhinitis 267580 04 J30.9 I will continue Singulair and Flonase. Fatigue 87773548 R53.83 Multifacto rial Insomnia 440982330 G47.0 0 Advised about sleep hygiene and possibly taking Benadryl. [id number] Joe Edwards MD [facility] [address] [place] [address] 07/23/2022 10:29:59 07/23/2022 14:39:35 Moderate persistent asthma 399774526 J45.40 Her asthma is not under control. She will continue with Symbicort 160/4.5, 2 puffs BID, Albuterol as needed. I will add Spiriva handihaler (Spiriva respimat and Incruse ellipta are not covered) FEV1 48%, FVC 48%, FEV1/FVC 88%, BD-, TLC 88%, DLCO 53% (2019), repeated PFTs showed FEV1 74%, FVC 87%, FEV1/FVC 70%, TLC 80%, DLCO 88%, FEV25/75% 46%,BD-(). I told her that if she continue to have trouble with asthma , we needs to add Dupixent. Obstructiv e sleep apnea syndrome 07161329 G47.33 Repeated sleep stdy showed AHI 11/hour, will continue aut CPAP, I will get a download Morbid obesity 518046334 E66.01 She's working on weight reduction, ERV 16% Nicotine dependence 5629 4008 F17.200 10PYH, quit smoking 2020 Allergic rhinitis 818709 04 J30.9 I will continue Singulair and Flonase. Insomnia 256114622 G47.0 0 Advised about sleep hygiene and possibly taking Benadryl. Fatigue 97613215 R53.83 Multifacto rial [id number] Joe Edwards MD [facility] [address] [place] [address] 03/22/2023 11:30:14 03/29/2023 09:49:12 Moderate persistent asthma 024896269 J45.40 Her asthma is not under control. She will continue with Symbicort 160/4.5, 2 puffs BID, Albuterol as needed. I will add Spiriva handihaler (Spiriva respimat and Incruse ellipta are not covered) FEV1 48%, FVC 48%, FEV1/FVC 88%, BD-, TLC 88%, DLCO 53% (2019), repeated PFTs showed FEV1 74%, FVC 87%, FEV1/FVC 70%, TLC 80%, DLCO 88%, FEV25/75% 46%,BD-(). I told her that if she continue to have trouble with asthma , we needs to add Dupixent. , will repeat PFTs Morbid obesity 082036937 E66.01 She's working on weight reduction, ERV 16% Acute bron chitis with bronchospasm 46138712 J20.9 see above for management , was advised to go to ER if condition worsened Tobacco de pendence in remission 405373546 F17.201 10PY, quit 2020. Allergic rhinitis 378309 04 J30.9 I will continue Singulair and Flonase. Insomnia 366757632 G47.0 0 Advised about sleep hygiene and possibly taking Benadryl. Fatigue 23317184 R53.83 Multifacto rial Obstructiv e sleep apnea syndrome 92690702 G47.33 Repeated sleep stdy showed AHI 11/hour, will continue aut CPAP, I will get a download [id number] Joe Edwards MD [facility] [address] [place] [address] 10/25/2023 09:35:37 10/25/2023 10:30:53 Moderate persistent asthma 391858690 J45.40 Her asthma is not under control. She will continue with Symbicort 160/4.5, 2 puffs BID, Albuterol as needed. I will add Spiriva handihaler (Spiriva respimat and Incruse ellipta are not covered) FEV1 48%, FVC 48%, FEV1/FVC 88%, BD-, TLC 88%, DLCO 53% (2019), repeated PFTs showed FEV1 74%, FVC 87%, FEV1/FVC 70%, TLC 80%, DLCO 88%, FEV25/75% 46%,BD-(). I told her that if she continue to have trouble with asthma , we needs to add Dupixent. , will repeat PFTs Morbid obesity 040169981 E66.01 She's working on weight reduction, ERV 16% Acute bron chitis with bronchospasm 54348200 J20.9 see above for management , was advised to go to ER if condition worsened Tobacco de pendence in remission 964180535 F17.201 10PY, quit 2020. Allergic rhinitis 151295 04 J30.9 I will continue Singulair and Flonase. Insomnia 051214256 G47.0 0 Advised about sleep hygiene and possibly taking Benadryl. Fatigue 45051665 R53.83 Multifacto rial Obstructiv e sleep apnea syndrome 60657099 G47.33 Repeated sleep stdy showed AHI 11/hour, will continue aut CPAP, I will get a download( she has not been using and was advised about the complicati on of MIREYA) [id number] LOGAN JENSEN NP [facility] [address] [place] [address] 01/10/2024 20:04:04 01/13/2024 09:00:24 Morbid obesity 606659858 E66.01 Exposure t o SARS-CoV-2 859277270 Z20.927 [id number] Joe Edwards MD [facility] [address] [address] 01/24/2024 09:35:08 01/25/2024 09:43:27 Moderate persistent asthma 247327826 J45.40 Her asthma is not under control. She will continue with Symbicort 160/4.5, 2 puffs BID, Albuterol as needed. I will add Spiriva handihaler (Spiriva respimat and Incruse ellipta are not covered) FEV1 48%, FVC 48%, FEV1/FVC 88%, BD-, TLC 88%, DLCO 53% (2019), repeated PFTs showed FEV1 74%, FVC 87%, FEV1/FVC 70%, TLC 80%, DLCO 88%, FEV25/75% 46%,BD-(). I told her that if she continue to have trouble with asthma , we needs to add Dupixent. , will repeat PFTs Morbid obesity 435084970 E66.01 She's working on weight reduction, ERV 16% Acute bron chitis with bronchospasm 98403171 J20.9 see above for management , was advised to go to ER if condition worsened Tobacco de pendence in remission 10PY, quit 2020. Allergic rhinitis 997721 04 J30.9 I will continue Singulair and Flonase. Insomnia 680684576 G47.0 0 Advised about sleep hygiene and possibly taking Benadryl. Fatigue 38555335 R53.83 Multifacto rial Obstructiv e sleep apnea syndrome 99334535 G47.33 Repeated sleep stdy showed AHI 11/hour, will continue aut CPAP, I will get a download( she has not been using and was advised about the complicati on of MIREYA) [id number] LOGAN JENSEN NP [facility] [address] [place] [address] 03/06/2024 16:54:29 03/08/2024 11:30:35 Morbid obesity 801637785 E66.01 Exacerbati on of intermittent asthma 952011403 J45.21 [id number] Joe Edwards MD [facility] [address] [address] 04/24/2024 09:22:19 04/24/2024 12:02:11 Moderate persistent asthma 091322597 J45.40 Her asthma is not under control. She will continue with Symbicort 160/4.5, 2 puffs BID, Albuterol as needed. I will add Spiriva handihaler (Spiriva respimat and Incruse ellipta are not covered) FEV1 48%, FVC 48%, FEV1/FVC 88%, BD-, TLC 88%, DLCO 53% (2019), repeated PFTs showed FEV1 74%, FVC 87%, FEV1/FVC 70%, TLC 80%, DLCO 88%, FEV25/75% 46%,BD-(). I told her that if she continue to have trouble with asthma , we needs to add Dupixent(s he has not received). , PFTs FEV1 53%, FVC 57%, FEV1/FVC 75%, DLCO 70%, DLCO 101% Morbid obesity 720772127 E66.01 She's working on weight reduction, ERV 16% Tobacco de pendence in remission 489129322 F17.201 10PY, quit 2020. Allergic rhinitis 125524 04 J30.9 I will continue Singulair and Flonase. Insomnia 513793030 G47.0 0 Advised about sleep hygiene and possibly taking Benadryl. Fatigue 06691196 R53.83 Multifacto rial Obstructiv e sleep apnea syndrome 49135958 G47.33 Repeated sleep stdy showed AHI 11/hour, She has not received auto CPAP Air trapping 36063021 J9 8.8 RV 178% [id number] JOSI PATEL NP [facility] (Adult/Fa m Med) [address] [place] [address] 05/09/2024 10:58:42 05/10/2024 14:20:42 Diabetes mellitus 50041550 E11.9 Take your diabetes medication dailycheck blood sugars fasting and post prandial --keep a log--bring to next appointmen tstop concentrat ed sugars--fo llow 1500 meal planexerci se 50-60 minutes daily on most dayscheck your feet for sores, cuts, etc.,see eye doctor once a yearsee dentist every 6 monthsRein forced diabetes compliance ; reviewed potential complicati ons of uncontroll ed diabetes Body mass index 40+ - severely obese 444163650 Z68.43 Tolerant non-smoker 8773 9003 Z87.891 Adult heal th examination 651074149 Z00.00 [id number] Joe Edwards MD [facility] [address] [place] [address] 07/31/2024 11:25:23 08/01/2024 13:41:11 Moderate persistent asthma 626875322 J45.40 Her asthma is not under control. She will continue with Symbicort 160/4.5, 2 puffs BID, Albuterol as needed. I will add Spiriva handihaler (Spiriva respimat and Incruse ellipta are not covered) FEV1 48%, FVC 48%, FEV1/FVC 88%, BD-, TLC 88%, DLCO 53% (2019), repeated PFTs showed FEV1 74%, FVC 87%, FEV1/FVC 70%, TLC 80%, DLCO 88%, FEV25/75% 46%,BD-(20 22). I told her that if she continue to have trouble with asthma , we needs to add Dupixent(s he has not received). , PFTs FEV1 53%, FVC 57%, FEV1/FVC 75%, DLCO 70%, DLCO 101%(2023) Morbid obesity 617985556 E66.01 She's working on weight reduction, ERV 16% Tobacco de pendence in remission 759804010 F17.201 10PY, quit 2020. Allergic rhinitis 607934 04 J30.9 I will continue Singulair and Flonase. Insomnia 048380516 G47.0 0 Advised about sleep hygiene and possibly taking Benadryl. Fatigue 43433392 R53.83 Multifacto rial Obstructiv e sleep apnea syndrome 90013393 G47.33 Repeated sleep stdy showed AHI 11/hour, She has not received auto CPAP Air trapping 20058220 J9 8.8 RV 178% [id number] JOSI PATEL NP [facility] (Adult/Fa m Med) [address] [place] [address] 08/08/2024 13:38:56 08/09/2024 14:44:38 Diabetes mellitus 36985891 E11.9 Take your diabetes medication dailycheck blood sugars fasting and post prandial --keep a log--bring to next appointmen tstop concentrat ed sugars--fo llow 1500 meal planexerci se 50-60 minutes daily on most dayscheck your feet for sores, cuts, etc.,see eye doctor once a yearsee dentist every 6 monthsRein forced diabetes compliance ; reviewed potential complicati ons of uncontroll ed diabetes Body mass index 40+ - severely obese 161862602 Z68.43 Ex-smoker 6350456 Z87.89 1 Essential hypertension 41931665 I10 losartan increased to 100mgPt bp is elevatedpt to f/u in 2 weeks for bp f/u Screening mammography 24 135531 Z12.31 Health Concerns Section Related Observation LastModified by Organization Detai ls LastModified Time None Recorded Concern Status LastModified by Organization Details LastModified Time None Recorded Advance Directives Directive Y: Payers Encounter Date Sequence Insurance Name Policy Number Policy Bush Covered Member ID Bush Member ID Guarantor Name 04/24/2024 1 [facility] (MEDICAID HMO) [id number] Tasneem Messer [id number] Tasneem Messer 05/09/2024 2 [facility] (MEDICAID HMO) [id number] Tasneem Messer [id number] Tasneem Messer 07/31/2024 1 [employer] (POS) [id number] Tasneem Messer [id number] Tasneem Messer 08/08/2024 1 [employer] [id number] Tasneem Messer [id number] Tasneem Messer Notes Date Note Type Note Provider Name and Address Organization Details Recorded Time 04/24/2024 text/html Patient is here for re-evaluation. She does not started auto CPAP. She continue to have wheezing Joe Edwards MD [address] [place], [address], [facility] 04/24/2024 10:23:28 05/09/2024 text/html 43-year-old Afri can [place] female [facility] patient has not been seen in over 2 years she was previously diagnosed with diabetes however was taken off her medication about a year ago as she was experiencing some hypoglycemia. Patient states that on April 10 she went to the ER because she had been experiencing some excessive urination and increased thirst and was noted to have an A1c of 9.1 she was then started back on her metformin at 500 twice a day her A1c today is noted to be 6.8.patient admits that her dad has a history of diabetes and she does have a grand child with type 1 diabetes patient denies any tobacco use denies any alcohol use other than socially denies any drug use including marijuana. patient works full-time. admits that she is sexually active with 1 male partner unprotected in a monogamous relationship. patient has 5 children was 2 still living at home . JOSI PATEL NP Attn: Accounting,[address] [place], [address], [facility] 05/09/2024 22:59:21 05/09/2024 text/html DiabetesReported bypatient.Duration:ch ronic Onset/Timing:diagnose d on: Control:improved since last visit;usually poorly controlled; treated with diet and oral medications; hemoglobin A1C has been greater than 9; hemoglobin A1C goal is less than 7 Compliance:noncomplia nt with medications;noncompli ant with followup-visits;nonco mpliant with diet;noncompliant with home glucose monitoring Self Care:monitoring glucose Associated Symptoms:no weight gain; no weight loss; no dizziness; no sweats; no headaches; no confusion; no increased thirst; no increased appetite; no increased urination; no blurred vision; no numbness of feet; no calluses on feet JOSI PATEL NP Attn: Accounting,[address] [facility], [place], [address], [facility] 05/09/2024 22:59:21 07/31/2024 text/html Patient is here for follow-up. She has not been receiving had apixaban injection. She has not been on auto CPAP. Joe Edwards MD [address] [place], [address], [facility] 07/31/2024 11:56:20 08/08/2024 text/html 43-year-old Afri can [place]i female presents today to for a follow-up patient has a history of poorly controlled type 2diabetes. in April of 2024 she reestablish care and was restarted on Ozempic. her A1c has gone from 9.3-5.3 in 4 months. patient states that she is tolerating it well however within the last month her insurance changed and she has not been able to get her prescription because of the prior Auth. she is unable to take metformin because it upsets her stomach. her blood pressure is elevated and patient admits that she has been taking losartan 25 mg p.o. 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 JOSI PATEL NP Attn: Accounting,[address] [facility], [place], [address], [facility] 08/08/2024 23:06:42 08/08/2024 text/html DiabetesReported bypatient.Duration:[facility] Onset/Timing:diagnose d on: Control:improved since last visit;usually poorly controlled; treated with diet and oral medications; hemoglobin A1C has been greater than 9; hemoglobin A1C goal is less than 7 Compliance:noncomplia nt with medications;noncompli ant with followup-visits;nonco mpliant with diet;noncompliant with home glucose monitoring Self Care:monitoring glucose Associated Symptoms:no weight gain; no weight loss; no dizziness; no sweats; no headaches; no confusion; no increased thirst; no increased appetite; no increased urination; no blurred vision; no numbness of feet; no calluses on feetLower LegReported bypatient.[facility] Severity:no pain Duration:2 months Timing:gradual Context:cannot identify; atraumatic Alleviating Factors:rest; elevation Aggravating Factors:standing Associated Symptoms:no weakness; no numbness; no tingling; no redness; no warmth; no ecchymosis; no catching/locking; no popping/clicking; no buckling; no grinding; no instability; no radiation down leg; no drainage; no fever; no chills; no weight loss; no change in bowel/bladder habits;swelling Previous Surgery:none Prior Imaging:none Previous Injections:none Previous PT:none Work Related:no Working:no JOSI PATEL NP Attn: [facility],[address] [place], [id number], [facility] 08/08/2024 23:06:42 OBGyn Episode No OBEpisode recorded.
--- OUTSIDE RECORDS SUMMARY | 2024-08-25 11:33 | XMS_ITS | Clinical Summary ---
Author Organization [facility] Address [address] [place] [id number] Care Team Providers Care Spike Machine Feeder Name Role Phone Oracio Lucas MD Primary Care Provider [phone] Social History Tobacco Use Types Packs/Day Years Used Date Smoking Tobacco: Never Assessed Comments Unknown Sex and Gender Information Value Date Recorded Sex Assigned at Not on file Legal Sex Female 8:14 PM CDT Gender Identity Not on file Sexual Orientation Not on file Plan of Treatment Health Maintenance Due Date Last Done Comments Cervical Cancer Screening Pa p Smear (Age 30 to 64) Every 3 Years 1979 Colorectal Cancer Screening Colonoscopy (10 Years) 1979 Annual Physical 1982 Hepatitis C 1997 DTaP, Tdap and Td Vaccines ( 1 - Tdap) 1998 Hepatitis B Vaccines (1 of 3 - 19+ 3-dose series) 1998 Cervical Cancer Screening Pa p with HPV Testing (Age 30 to 64) Every 5 Years 2009 Cervical Cancer Screening with HPV 2009 Mammogram Screening 2019 COVID-19 Vaccine (2023-2 5 season) 2024 Influenza Adult (#1) 2024 HPV Vaccines Aged Out No longer eligi ble based on patient's age to complete this topic Meningococcal B Vaccine Aged Out No l onger eligible based on patient's age to complete this topic Meningococcal Vaccine Aged Out No maye leo eligible based on patient's age to complete this topic Pneumococcal Vaccine: Pediat rics (0 to 5 Years) and At-Risk Patients (6 to 64 Years) Aged Out No longer eligible b ased on patient's age to complete this topic RSV Immunizations Under 20 Months Aged Out No longer eligible based on patient's age to complete this topic Care Teams Spike Machine Feeder Relationship Specialty Start Date End Date Oracio Lucas MD [address] [address] PCP - General 06/21/13
[2024-08-25 11:41] VITALS: BP 143/94; PULSE 113; RESP 20; TEMP 36.6; O2SAT 100
== END 2024-08-25 11:53 | disposition home or self-care (01) ==
PROVIDERS: Emergency Provider Physician Assistant
DX: J45.901 Unspecified asthma with (acute) exacerbation (principal); Z20.822 Contact with and (suspected) exposure to COVID-19
CPT/HCPCS: 36415; 71046; 80053; 83690; 84484; 85025; 85610; 85730; 87637; 93005; 94640; 96365; 96366; 96375; 99284; J2919; J3475